=== PATIENT | female | born 1940 | race Two or more races ===

== ENCOUNTER 2020-05-16 07:34 | Outpatient (REF) | payer MEDICARE, SELFPAY ==
[2020-05-16 08:24] LABS: Imm Gran Abs Auto 0.03 X10*3/uL (0.00-0.03); Imm Gran Pct Auto 0.7 % (0.0-0.4); Monocytes Percent Auto 5.3 % (2-11); Red Cell Distribution Width 11.9 % (11.0-16.0); SCAN SMEAR FLAG 1
[2020-05-16 08:26] LABS: Basophils Percent Auto 0.7 % (0-2); Eosinophils Absolute Auto 0.1 X10*3/uL (0.0-0.4); Eosinophils Percent Auto 1.5 % (0-4); Hematocrit 31.7 % (37-47); Hemoglobin 9.7 g/dl (12.0-16.0); Lymphocytes Absolute Auto 1.6 X10*3/uL (1.2-4.9); Lymphocytes Percent Auto 34.4 % (20-40); Mean Corpuscular HGB Conc 30.6 g/dl (31.0-35.0); Mean Corpuscular Hemoglobin 29.4 pg (27.0-33.0); Mean Corpuscular Volume 96.1 fL (80-98); Monocytes Absolute Auto 0.2 X10*3/uL (0.1-1.2); Neutrophils Absolute Auto 2.6 X10*3/uL (2.0-8.3); Neutrophils Percent Auto 57.4 % (45-73); PLT CLUMP 1
[2020-05-16 08:27] LABS: MANUAL DIFF FLAG SCAN; PLT ABN DIST 1
[2020-05-16 08:55] LABS: Alanine Aminotransferase 22 U/L (0-31); Albumin Level 4.3 g/dL (3.5-5.0); Alkaline Phosphatase 53 U/L (39-117); Anion Gap 14 (12-20); Aspartate Amino Transferase 16 U/L (5-31); Bilirubin Total 0.8 mg/dL (0.0-1.0); Blood Urea Nitrogen 22 mg/dL (9-16); Calcium 9.1 mg/dL (8.4-10.2); Carbon Dioxide 27 mmol/L (22-29); Chloride 105 mmol/L (96-108); Cholesterol 185 mg/dL; Estimated Glomerular Filt Rate > 60; Glucose Fasting 109 mg/dL (60-99); HDL Cholesterol 34 mg/dL; LDL Cholesterol Calculated 99 mg/dl; Potassium 4.2 mmol/l (3.3-5.1); Sodium 142 mmol/L (135-145); Total Protein 6.7 g/dL (6.5-8.0); Triglycerides 263 mg/dL
[2020-05-16 08:57] LABS: White Blood Count 4.6 X10*3/uL (4.8-10.8)
[2020-05-16 08:58] LABS: Platelet Count 133 X10*3/uL (160-400)
[2020-05-16 08:59] LABS: SLIDE REVIEW VERIFIED
[2020-05-16 09:17] LABS: Vitamin D 25-OH Total 38.8 ng/mL (>30)
[2020-05-16 10:08] LABS: Folate 14.2 ng/mL (> or = 4.0); Vitamin B12 806 pg/mL (200-900)
== END 2020-05-16 07:35 | disposition home or self-care (01) ==
LOC: HO.LAB 07:34
PROVIDERS: Visit Provider Internal Medicine
DX: I10 Essential (primary) hypertension (principal); D51.0 Vitamin B12 deficiency anemia due to intrinsic factor deficiency; E55.9 Vitamin D deficiency, unspecified
CPT/HCPCS: 36415; 80053; 80061; 82306; 82607; 82746; 85025

== ENCOUNTER → 2020-05-18 15:15 | Outpatient (BNVA) | payer MEDICARE, SELFPAY | PROVIDERS: PCP Internal Medicine; Visit Provider Surgery | DX: Z85.3 Personal history of malignant neoplasm of breast (principal) | CPT/HCPCS: 99202 ==

== ENCOUNTER → 2020-05-24 14:12 | Outpatient (BNV) | payer MEDICARE, SELFPAY | PROVIDERS: PCP Internal Medicine; Visit Provider Internal Medicine | DX: D64.9 Anemia, unspecified (principal); Z85.3 Personal history of malignant neoplasm of breast | CPT/HCPCS: 99212; 99213; 99214; 99442; G2211 ==

== ENCOUNTER 2020-06-10 15:51 | Outpatient (REF) | payer MEDICARE, SELFPAY ==
--- NOTE | 2020-06-10 15:54 | MM_ITS ---
EXAMINATION: MM SCREENING DIGITAL BREAST TOMOSYNTHESIS, BILATERAL CLINICAL INFORMATION: Screening. Asymptomatic. History left lumpectomy for breast cancer 08/09/2015. Prior aspirations for seroma. Due for annual exam. COMPARISON: Mammography: 03/16/2019, 03/13/2018, 03/07/2017 TECHNIQUE: Digital breast tomosynthesis is performed in both the craniocaudal and mediolateral oblique views along with computer-aided detection (CAD). Synthesized 2D images are generated from the tomosynthesis. Additional left MLO view and additional bilateral exaggerated CC views are provided. FINDINGS: There are scattered areas of fibroglandular density (ACR BI-RADS breast composition Category b). Parenchymal pattern is similar to prior studies. Post therapy changes left breast are again noted with reduced breast size and old scarring and surgical clips. Neither breast shows interval mass or architectural abnormality or abnormal calcifications. No significant changes. MM/MM tomosynthesis screening BI IMPRESSION: No mammographic evidence of malignancy. Post therapy changes left breast. ASSESSMENT: BI-RADS 2: Benign RECOMMENDATION: Routine annual mammography screening. This patient's information was entered into a reminder system with a target due date for their next mammogram.
== END 2020-06-10 15:52 | disposition home or self-care (01) ==
LOC: HO.MAMMO 15:51
PROVIDERS: Visit Provider Internal Medicine
DX: Z12.31 Encounter for screening mammogram for malignant neoplasm of breast (principal)
CPT/HCPCS: 77063; 77067

== ENCOUNTER 2020-06-22 | Outpatient (REF) | payer MEDICARE, MEDICAID, SELFPAY | END 2020-06-22 00:01 | disposition home or self-care (01) | LOC: HO.VC | PROVIDERS: Visit Provider Internal Medicine | DX: Z23 Encounter for immunization (principal) | CPT/HCPCS: 0011A ==

== ENCOUNTER 2020-07-12 14:22 | Outpatient (REF) | payer MEDICARE, SELFPAY ==
[2020-07-12 15:09] LABS: Eosinophils Absolute Auto 0.1 X10*3/uL (0.0-0.4); MANUAL DIFF FLAG SCAN; Retic HGB Equivalent 34.2 pg (30.0-35.0); SCAN SMEAR FLAG 1
[2020-07-12 15:12] LABS: Basophils Percent Auto 0.3 % (0-2); Eosinophils Percent Auto 1.6 % (0-4); Hematocrit 32.3 % (37-47); Imm Gran Abs Auto 0.02 X10*3/uL (0.00-0.03); Imm Gran Pct Auto 0.3 % (0.0-0.4); Immature Retic Fraction 8.8 % (3.0-15.9); Lymphocytes Percent Auto 32.9 % (20-40); Mean Corpuscular Hemoglobin 29.7 pg (27.0-33.0); Mean Corpuscular Volume 95.8 fL (80-98); Monocytes Absolute Auto 0.4 X10*3/uL (0.1-1.2); Monocytes Percent Auto 7.2 % (2-11); Neutrophils Absolute Auto 3.5 X10*3/uL (2.0-8.3); Neutrophils Percent Auto 57.7 % (45-73); PLT CLUMP 1; Red Blood Count 3.37 X10*6/uL (4.20-5.50); Red Cell Distribution Width 11.9 % (11.0-16.0); Reticulocyte Percent 2.1 % (0.5-1.8)
[2020-07-12 15:18] LABS: PLT ABN DIST 1
[2020-07-12 15:19] LABS: White Blood Count 6.1 X10*3/uL (4.8-10.8)
[2020-07-12 15:26] LABS: Iron 68 mcg/dL (30-160); Percent Iron Saturation 22 % (15-50); Total Iron Binding Capacity 313 mcg/dL (228-428); Unsaturated Iron Binding 245 ug/dL
[2020-07-12 15:48] LABS: Platelet Count 144 X10*3/uL (160-400); SLIDE REVIEW VERIFIED
== END 2020-07-12 14:23 | disposition home or self-care (01) ==
LOC: HO.LAB 14:22
PROVIDERS: PCP Internal Medicine; Visit Provider Internal Medicine
DX: D64.9 Anemia, unspecified (principal)
CPT/HCPCS: 36415; 83540; 85025; 85045

== ENCOUNTER 2020-07-20 | Outpatient (REF) | payer MEDICARE, MEDICAID, SELFPAY | END 2020-07-20 00:01 | disposition home or self-care (01) | LOC: HO.VC | PROVIDERS: Visit Provider Internal Medicine | DX: Z23 Encounter for immunization (principal) | CPT/HCPCS: 0012A ==

== ENCOUNTER → 2020-11-15 14:41 | Outpatient (BNVA) | payer MEDICARE, SELFPAY | PROVIDERS: PCP Internal Medicine; Referring Provider Internal Medicine; Visit Provider Surgery | DX: Z95.3 Presence of xenogenic heart valve (principal) | CPT/HCPCS: 99212 ==

== ENCOUNTER → 2021-01-17 11:09 | Outpatient (BNVA) | payer MEDICARE, SELFPAY | PROVIDERS: PCP Internal Medicine; Visit Provider Student in an Organized Health Care Education/Training Program | CPT/HCPCS: Q3014 ==

== ENCOUNTER → 2021-06-13 14:50 | Outpatient (BNVA) | payer MEDICARE, SELFPAY | PROVIDERS: PCP Internal Medicine; Referring Provider Internal Medicine; Visit Provider Surgery | DX: Z85.3 Personal history of malignant neoplasm of breast (principal) | CPT/HCPCS: 99212 ==

== ENCOUNTER 2021-06-20 13:47 | Outpatient (REF) | payer MEDICARE, SELFPAY ==
--- NOTE | ~2021-06-20 | MM_ITS ---
EXAMINATION: MM SCREENING DIGITAL BREAST TOMOSYNTHESIS, BILATERAL CLINICAL INFORMATION: Left lumpectomy for breast cancer, 08/09/2015. Prior aspirations for seroma. Due for yearly. COMPARISON: Mammography: 06/10/2020, 03/16/2019, 03/13/2018, 03/07/2017 TECHNIQUE: Digital breast tomosynthesis is performed in both the craniocaudal and mediolateral oblique views along with computer-aided detection (CAD). Synthesized 2D images are generated from the tomosynthesis. FINDINGS: There are scattered areas of fibroglandular density (ACR BI-RADS breast composition Category b). There are no significant changes from prior study. Post therapy changes are present on the left with mild reduced breast size and old scarring posterior upper outer quadrant. There are surgical clips in the lumpectomy site. Bilateral vascular calcifications and some ductal secretory calcifications are again present. The right breast is unremarkable. There is no interval mass or architectural abnormality or developing density. MM/MM tomosynthesis screening BI IMPRESSION: No mammographic evidence of malignancy. Post therapy changes left breast. ASSESSMENT: BI-RADS 2: Benign RECOMMENDATION: Routine annual mammography screening. This patient's information was entered into a reminder system with a target due date for their next mammogram.
== END 2021-06-20 13:48 | disposition home or self-care (01) ==
LOC: HO.MAMMO 13:47
PROVIDERS: PCP Internal Medicine; Visit Provider Internal Medicine
DX: Z12.31 Encounter for screening mammogram for malignant neoplasm of breast (principal)
CPT/HCPCS: 77063; 77067

== ENCOUNTER → 2022-01-11 14:29 | Outpatient (BNVA) | payer MEDICARE, SELFPAY | PROVIDERS: PCP Internal Medicine; Referring Provider Internal Medicine; Visit Provider Surgery | DX: Z85.3 Personal history of malignant neoplasm of breast (principal); Z17.1 Estrogen receptor negative status [ER-]; I10 Essential (primary) hypertension; E53.8 Deficiency of other specified B group vitamins; E55.9 Vitamin D deficiency, unspecified; Z91.09 Other allergy status, other than to drugs and biological substances; Z92.21 Personal history of antineoplastic chemotherapy; Z92.3 Personal history of irradiation; Z79.899 Other long term (current) drug therapy | CPT/HCPCS: 99212 ==

== ENCOUNTER 2022-05-03 08:00 | Outpatient (REF) | payer OTHER, SELFPAY ==
[2022-05-03 09:01] LABS: Cholesterol 234 mg/dL; HDL Cholesterol 34 mg/dL; LDL Cholesterol Calculated 141 mg/dl; Triglycerides 299 mg/dL
[2022-05-03 09:36] LABS: Folate 16.9 ng/mL (> or = 4.0); Vitamin B12 894 pg/mL (200-900)
== END 2022-05-03 08:01 | disposition home or self-care (01) ==
LOC: HO.LAB 08:00
PROVIDERS: PCP Internal Medicine; Visit Provider Nurse Practitioner Family
DX: E53.8 Deficiency of other specified B group vitamins (principal); I10 Essential (primary) hypertension
CPT/HCPCS: 36415; 80061; 82607; 82746

== ENCOUNTER 2022-07-10 13:55 | Outpatient (REF) | payer OTHER, SELFPAY ==
--- NOTE | ~2022-07-10 | MM_ITS ---
EXAMINATION: MM SCREENING DIGITAL BREAST TOMOSYNTHESIS, BILATERAL CLINICAL INFORMATION: Screening. Asymptomatic. Status post left lumpectomy. COMPARISON: Mammography: June 20, 2021 and studies dating back to August 09, 2015 TECHNIQUE: Digital breast tomosynthesis is performed in both the craniocaudal and mediolateral oblique views along with computer-aided detection (CAD). Synthesized 2D images are generated from the tomosynthesis. FINDINGS: There are scattered areas of fibroglandular density (ACR BI-RADS breast composition Category b). There are no new significant masses, abnormal calcifications, or other abnormalities. Postsurgical change left breast again seen. MM/MM tomosynthesis screening BI IMPRESSION: No significant changes ASSESSMENT: BI-RADS 2: Benign RECOMMENDATION: Routine annual mammography screening. This patient's information was entered into a reminder system with a target due date for their next mammogram.
== END 2022-07-10 13:56 | disposition home or self-care (01) ==
LOC: HO.MAMMO 13:55
PROVIDERS: PCP Internal Medicine; Visit Provider Internal Medicine
DX: Z12.31 Encounter for screening mammogram for malignant neoplasm of breast (principal)
CPT/HCPCS: 77063; 77067

== ENCOUNTER 2022-11-13 09:09 | Outpatient (REF) | payer OTHER, SELFPAY ==
--- NOTE | ~2022-11-13 | XR_ITS ---
EXAMINATION: XR HIP, LEFT CLINICAL INFORMATION: Left hip pain COMPARISON: None available. TECHNIQUE: Two views of the left hip. FINDINGS: No fracture or dislocation. Mild left hip joint narrowing. Pubis symphysis sclerosis. SI joint within normal limits. XR/XR hip LT w PEL1V IMPRESSION: Mild degenerative change. No acute bony pathology.
== END 2022-11-13 09:10 | disposition home or self-care (01) ==
LOC: HO.HMGCX 09:09
PROVIDERS: PCP Internal Medicine; Visit Provider Internal Medicine
DX: M25.552 Pain in left hip (principal)
CPT/HCPCS: 73502

== ENCOUNTER 2022-11-28 07:42 | Outpatient (AMB) | payer OTHER, SELFPAY ==
--- NOTE | 2022-11-28 07:53 | MHC.PC.OV ---
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: No Accompanied by: daughter in law Allergies ENVIRONMENTAL Allergy (Mild, Uncoded 11/28/22 08:03) SWOLLEN EYES FROM POLLEN Medication List - Last Reconciled 11/28/22 by Christy Powell MD atorvastatin 20 mg PO BEDTIME 90 days calcium citrate 200 mg PO DAILY 30 days cholecalciferol (vitamin D3) 25 mcg PO DAILY 90 days cyanocobalamin (vitamin B-12) 1,000 mcg sublingual DAILY 90 days ferrous sulfate (iron) 325 mg PO DAILY 90 days lisinopril-hydrochlorothiazide 10-12.5 mg 1 tab PO DAILY 90 days sertraline 25 mg PO DAILY Tobacco use date assessed: 07/19/22 Fall risk assessment: No Falls in past year Last assessed Fall Risk: 11/28/22 Dental Screening Dental Screen Date: 11/28/22 Did you have a dental visit in the last 12 months?: Yes Did you have a dental problem in the last 6 months where you did not have access to dental care?: No Was dental information given to patient?: Patient has dentist HPI HPI Comments History of Present Illness Details This is an 82-year-old female with hypertension, pure hypercholesterolemia and mild major depression that complains of left hip pain secondary to osteoarthritis not relieved by NSAIDs. I will order MAPAP as needed for this matter and will refer her to Ortho. Walks with a cane for gait stability. Accompanied by daughter in-law. Blood pressure stable. Lipid panel will be order and was advised to follow a low-cholesterol diet and be compliant with statins. Depression stable with SSRIs. Has left hearing loss and will be referred to ear exam. COUNT INCLUDES THE [facility] Medical History (Updated 11/28/22 @ 08:16 by Christy Powell MD) B12 deficiency Depression Essential hypertension History of left breast cancer Hypovitaminosis D Surgical History History of cholecystectomy History of eye surgery History of hysterectomy History of lumpectomy of left breast Family History Father No problems noted. Mother No problems noted. Brother Lung cancer Social History Household Members: None Housing: Apartment Alcohol intake: never Patient Tobacco Use Status: Never used Tobacco e-Cigarette/Vaping Use: Never Used Second Hand Smoke Exposure: No service: No Current occupational status: unemployed Cognitive needs: Yes (cane, walker ) Hearing needs: No Vision needs: Yes Questionnaire Thrive Questionnaire Date Thrive assessed: 07/19/22 OLIVER-7 AMB Questionnaire OLIVER-7 Date OLIVER - 7 assessed: 07/19/22 Source: Developed by Drs. Sarbjit Hilario, Alisa Collins, Ramana Monterroso and colleagues, with an educational marcelo from [employer]. Review of Systems Const All systems reviewed & are unremarkable except as noted in HPI and below Eyes Reports no additional complaints, Denies change in vision and Denies other visual disturbances Card Denies chest pain at rest, Denies chest pain with activity, Denies edema, Denies irregular heart rhythm, Denies claudication, Denies dyspnea, Denies dyspnea on exertion, Denies orthopnea, Denies paroxysmal nocturnal dyspnea and Denies slow heart rate Resp Denies cough, Denies dyspnea and Denies dyspnea on exertion GI Denies abdominal pain, Denies change in bowel habits, Denies excessive flatus, Denies nausea and Denies vomiting Denies urinary incontinence, Denies urinary hesitancy and Denies urinary urgency Musc Denies abnormal gait, Denies atrophy, Denies deformity, Reports arthralgias and Denies limited range of motion Skin/Breast Denies bleeding lesions, Denies changing lesions and Denies rash Neuro Denies abnormal gait and Denies lack of coordination Physical exam (Primary Care) Vital Signs: Last Vital Signs BP 130/58 L 11/28/22 07:54 BMI result Body Mass Index 33.8 Tobacco/Smoking Status: Tobacco use Status Tobacco use date assessed 07/19/22 11/28/22 08:00 Patient Tobacco Use Status Never used Tobacco 11/28/22 08:00 e-Cigarette/Vaping Use Never Used 11/28/22 08:00 Thrive Assessment: Date of Thrive Assessment Date Thrive assessed 07/19/22 11/28/22 08:00 Const Limitations: ambulation with cane Eyes General: appearance normal, both eyes and all related structures Eyelids: Yes eyelids normal Conjunctivae: conjunctivae normal Neck Neck: Yes normal visual inspection and Yes supple Resp Effort & Inspection: normal respiratory effort Auscultation: clear to auscultation bilaterally Cardio Jugular venous distension: no JVD Rate: regular rate Rhythm: regular rhythm Heart sounds: S1 normal heart sound present and S2 normal heart sound present Extrem General: Yes full ROM Assessment and Plan Assessment & Plan (1) Mild major depression: Code(s): F32.0 - Major depressive disorder, single episode, mild Plan: Continue sertraline. (2) Osteoarthritis of left hip: Code(s): M16.12 - Unilateral primary osteoarthritis, left hip Plan: Start MAPAP prn. Referred to Ortho. (3) Essential hypertension: Code(s): I10 - Essential (primary) hypertension Plan: Continue lisinopril-hydrochlorothiazide. Blood pressure goal is equal or less than 130/80. (4) Pure hypercholesterolemia: Code(s): E78.00 - Pure hypercholesterolemia, unspecified Plan: Continue statins. Start low-cholesterol diet. Repeat lipid panel. Orders: Orders Vitamin B12 and Folate Today E53.8 - Deficiency of other specified B group vitamins Comprehensive [place]. Panel Fast Today I10 - Essential (primary) hypertension IRON PROFILE Today D64.9 - Anemia, unspecified Lipid Panel Today E78.5 - Hyperlipidemia, unspecified Vitamin D 25-OH Total Today E55.9 - Vitamin D deficiency, unspecified Complete Blood Count Auto Diff Today D64.9 - Anemia, unspecified XR DEXA axial skeleton Today N95.9 - Unspecified menopausal and perimenopausal disorder Referrals Speech and Hearing Referral H91.90 - Unspecified hearing loss, unspecified ear Orthopedics Referral M16.12 - Unilateral primary osteoarthritis, left hip Medications: New acetaminophen ER (Mapap Arthritis Pain) 1,300 mg (2 x 650 mg) PO Q8H 30 days PRN 180 tabs 2RF pain M16.12 - Unilateral primary osteoarthritis, left hip Coding Level of Care Code Est Pt Level 4 (89081) Diagnoses Mild major depression F32.0 Osteoarthritis of left hip M16.12 Essential hypertension I10 Pure hypercholesterolemia E78.00 Time Spent (min) 24
[2022-11-28 07:54] VITALS: BP 130/58; BMI 33.8
== END 2022-11-28 08:14 | disposition home or self-care (01) ==
PROVIDERS: Visit Provider Internal Medicine
DX: F32.0 Major depressive disorder, single episode, mild (principal); M16.12 Unilateral primary osteoarthritis, left hip; I10 Essential (primary) hypertension; E78.00 Pure hypercholesterolemia, unspecified
CPT/HCPCS: 99214

== ENCOUNTER 2022-12-20 07:40 | Outpatient (REF) | payer OTHER, SELFPAY ==
--- NOTE | ~2022-12-20 | MM_ITS ---
EXAMINATION: BONE DENSITOMETRY CLINICAL INDICATION: Menopause. COMPARISON: Baseline BD dated 05/11/2016. TECHNIQUE: Using a [employer] DXA System (software version: 13.1) manufactured by [employer], dual-energy x-ray absorptiometry was performed of the lumbar spine and left hip. The images are of good technical quality. Summary results are attached. FINDINGS: LEFT FEMUR, NECK: Current: BMD 0.655 g/cm2, Z-score -0.4, T-score -2.8, osteoporosis. Baseline: BMD 0.613 g/cm2. LEFT FEMUR, TOTAL: Current: BMD 0.772 g/cm2, Z-score 0.4, T-score -1.9, osteopenia, 3.3% increase from baseline (<5% change is not significant). Baseline: BMD 0.747 g/cm2. AP SPINE L1-L3 (excluding L4): The data of L1-L4 has been changed to exclude the L4 vertebral body, because degenerative sclerosis at this level may cause overestimation of lumbar spine density. Current: BMD 0.922 g/cm2, Z-score -0.1, T-score -2.1, osteopenia, 29.3% increase from baseline (<5% change is not significant). Baseline: BMD 0.713 g/cm2. IDENTIFIED RISK FACTORS: Early menopause, hysterectomy, secondary osteoporosis. HISTORY OF FRACTURE: None listed. MEDICATIONS: Calcium, vitamin D. MM/XR DEXA axial skeleton IMPRESSION: 1. DIAGNOSIS: Osteoporosis based on the lowest T-score value of -2.8 in the femoral neck applying World Health Organization criteria. 2. 10-YEAR FRACTURE RISK PREDICTION, FRAX: According to the guidelines, FRAX calculation should only be performed on patients in the osteopenia bone density category. Therefore, FRAX was not performed on this patient. 3. Treatment Recommendations: NOF guidelines recommend consideration for treatment in postmenopausal women and men age 50 and older presenting with the following: -A hip or vertebral (clinical or morphometric) fracture. -T-score less than or equal to -2.5 at the femoral neck or spine after appropriate evaluation to exclude secondary causes. -Low bone mass at the hip or spine and a 10-year fracture probability by FRAX of greater than or equal to 3% for hip fracture or greater than or equal to 20% for major osteoporotic fracture based on the [place] adapted WHO algorithm. 4. Other Recommendations: All treatment decisions require clinical judgment and consideration of individual patient factors, including patient preferences, comorbidities, previous drug use, risk factors not captured in the FRAX model (e.g. frailty, falls, vitamin D deficiency, increased bone turnover, interval significant decline in bone density) and possible under or overestimation of fracture risk by FRAX. Additional medical evaluation for secondary cause of low bone mineral density may be appropriate. FUTURE SCAN RECOMMENDATION: People with diagnosed cases of osteoporosis or at high risk for fracture should have regular bone mineral density tests. For patients eligible for Medicare, routine testing is allowed once every 2 years. The testing frequency can be increased to one year for patients who have rapidly progressing disease, those who are receiving or discontinuing medical therapy to restore bone mass, or have additional risk factors.
== END 2022-12-20 07:41 | disposition home or self-care (01) ==
LOC: HO.MAMMO 07:40
PROVIDERS: PCP Internal Medicine; Visit Provider Internal Medicine
DX: Z13.820 Encounter for screening for osteoporosis (principal); Z78.0 Asymptomatic menopausal state
CPT/HCPCS: 77080

== ENCOUNTER → 2022-12-20 08:15 | Outpatient (BNV) | payer OTHER, SELFPAY | PROVIDERS: PCP Internal Medicine; Visit Provider Radiology Diagnostic Radiology | DX: M81.0 Age-related osteoporosis without current pathological fracture (principal); N95.9 Unspecified menopausal and perimenopausal disorder | CPT/HCPCS: 77080 ==

== ENCOUNTER 2022-12-20 08:27 | Outpatient (REF) | payer OTHER, SELFPAY ==
[2022-12-20 08:48] LABS: MANUAL DIFF FLAG NO
[2022-12-20 09:01] LABS: Basophils Percent Auto 0.5 % (0-2); Eosinophils Absolute Auto 0.1 X10*3/uL (0.0-0.4); Eosinophils Percent Auto 2.2 % (0-4); Hematocrit 32.6 % (37.0-47.0); Hemoglobin 10.2 g/dl (12.0-16.0); Imm Gran Abs Auto 0.04 X10*3/uL (0.00-0.03); Imm Gran Pct Auto 0.7 % (0.0-0.4); Lymphocytes Absolute Auto 1.7 X10*3/uL (1.2-4.9); Lymphocytes Percent Auto 29.6 % (20-40); Mean Corpuscular HGB Conc 31.3 g/dl (31.0-35.0); Mean Corpuscular Hemoglobin 30.6 pg (27.0-33.0); Mean Corpuscular Volume 97.9 fL (80.0-98.0); Mean Platelet Volume 12.2 fL (9.4-12.3); Monocytes Absolute Auto 0.4 X10*3/uL (0.1-1.2); Monocytes Percent Auto 6.3 % (2-11); Neutrophils Absolute Auto 3.4 x10*3/uL (2.0-8.3); Neutrophils Percent Auto 60.7 % (45-73); Platelet Count 155 X10*3/uL (160-400); Red Blood Count 3.33 X10*6/uL (4.20-5.50); White Blood Count 5.6 X10*3/uL (4.8-10.8)
[2022-12-20 09:36] LABS: Alanine Aminotransferase 42 U/L (0-31); Albumin Level 4.4 g/dL (3.5-5.0); Alkaline Phosphatase 72 U/L (39-117); Anion Gap 16 (12-20); Aspartate Amino Transferase 21 U/L (5-31); Bilirubin Total 0.5 mg/dL (0.0-1.0); Blood Urea Nitrogen 23 mg/dL (9-16); Calcium 9.8 mg/dL (8.4-10.2); Carbon Dioxide 25 mmol/L (22-29); Chloride 106 mmol/L (96-108); Cholesterol 200 mg/dL; Estimated Glomerular Filt Rate > 60; Glucose Fasting 105 mg/dL (60-99); HDL Cholesterol 37 mg/dL; Iron 90 mcg/dL (30-160); LDL Cholesterol Calculated 102 mg/dl; Percent Iron Saturation 34 % (15-50); Potassium 4.1 mmol/L (3.3-5.1); Sodium 143 mmol/L (135-145); Total Iron Binding Capacity 267 mcg/dL (228-428); Total Protein 7.1 g/dL (6.5-8.0); Triglycerides 308 mg/dL; Unsaturated Iron Binding 177 ug/dL
[2022-12-20 09:57] LABS: Vitamin D 25-OH Total 43.7 ng/mL (>30)
[2022-12-20 10:03] LABS: Vitamin B12 743 pg/mL (200-900)
== END 2022-12-20 08:28 | disposition home or self-care (01) ==
LOC: HO.LAB 08:27
PROVIDERS: PCP Internal Medicine; Visit Provider Internal Medicine
DX: E53.8 Deficiency of other specified B group vitamins (principal); D64.9 Anemia, unspecified; E55.9 Vitamin D deficiency, unspecified; E78.5 Hyperlipidemia, unspecified; I10 Essential (primary) hypertension
CPT/HCPCS: 36415; 80053; 80061; 82306; 82607; 82746; 83540; 85025

== ENCOUNTER 2022-12-28 07:44 | Outpatient (AMB) | payer OTHER, SELFPAY ==
[2022-12-28 07:58] VITALS: BMI 33.8
--- NOTE | 2022-12-28 07:58 | MHC.OFFVIS ---
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 States she was having lateral hip and groin pain for the last month. States her pain was so bad she had to use a cane for support. No injury she can recall. State she was seen at walk in center as well. Currently states her pain has resolved. She no longer has pain, state she was given muscle relaxer which helped. Denies numbness or tingling. Patient states she fell about 2 weeks ago and scrapped her knee. States she has no pain. 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 She states she was having lateral hip and groin pain which was aggravated with prolonged walking and performing daily activities. Her pain is currently resolved and she denies having any pain, numbness or tingling. She was seen at a walk-in clinic where she was prescribed a muscle relaxant which provided her relief. She has not had any injury in the past. [facility] Medical History B12 deficiency Depression Essential hypertension History of left breast cancer Hypovitaminosis D Surgical History History of cholecystectomy History of eye surgery History of hysterectomy History of lumpectomy of left breast Family History Father No problems noted. Mother No problems noted. Brother Lung cancer Social History Household Members: None Housing: Apartment Alcohol intake: never Patient Tobacco Use Status: Never used Tobacco e-Cigarette/Vaping Use: Never Used Second Hand Smoke Exposure: No service: No Current occupational status: unemployed Cognitive needs: Yes (cane, walker ) Hearing needs: No Vision needs: Yes Review of Systems Const All systems reviewed & are unremarkable except as noted in HPI and below Physical Exam Vital Signs: BMI result Body Mass Index 33.8 Const General: cooperative, healthy appearing, comfortable, no acute distress, well developed and alert Orientation/consciousness: patient oriented x3 HEENT Head: Yes normal to inspection, Yes normocephalic and Yes atraumatic Eyes General: appearance normal, both eyes and all related structures Resp Effort & Inspection: normal respiratory effort and able to speak in complete sentences Cardio Rate: regular rate Peripheral pulses: Peripheral pulses 2+ throughout GI Palpation (GI): Soft to palpation Skin Lesions: no lesions Rashes: no rashes Neuro General: patient oriented x3 Extrem Other: Left hip: Normal to inspection, ambulates with a slight limp. Has no discomfort with internal and extension rotation of hip. No significant stiffness. Mild discomfort with hip flexion against resistance. Negative SLR. NVI. Results Reviewed Results Reviewed: xrays of the left hip obtained on 11/13/22 Mild degenerative change. No acute bony pathology. Assessment & Plan Assessment & Plan (1) Osteoarthritis of left hip: Code(s): M16.12 - Unilateral primary osteoarthritis, left hip Plan She is doing well since her visit with the walk-in clinic. If symptoms return and she is significantly limited with daily activities, I did explain that she may benefit from surgical intervention, likely [place]. She does understand all this and if symptoms persist or worsens, patient will contact the office, otherwise follow-up as needed. Patient Instructions: Scribed for Tesha Jamison PA-C, by Boo Tomlinson medical technologist microbiology, on 12/28/2022 at 8:00 AM EST. ITesha PA-C, have personally reviewed and agree with the information entered by the scribe. Coding Level of Care Code New Pt Level 3 (71496) Diagnoses Osteoarthritis of left hip M16.12
== END 2022-12-28 08:19 | disposition home or self-care (01) ==
PROVIDERS: PCP Internal Medicine; Visit Provider Physician Assistant
DX: M16.12 Unilateral primary osteoarthritis, left hip (principal)
CPT/HCPCS: 99203

== ENCOUNTER → 2022-12-28 07:44 | Outpatient (BNVA) | payer OTHER, SELFPAY | PROVIDERS: PCP Internal Medicine; Visit Provider Physician Assistant | DX: M16.12 Unilateral primary osteoarthritis, left hip (principal) | CPT/HCPCS: 99202 ==

== ENCOUNTER 2023-01-07 09:21 | Outpatient (AMB) | payer OTHER, SELFPAY ==
[2023-01-07 09:26] VITALS: BP 122/64; PULSE 85; O2SAT 97; BMI 34.4
--- NOTE | 2023-01-07 09:26 | MHC.PC.OV ---
Vital Signs 01/07/23 09:26 Height 4 ft 5 in Weight 137 lb 6 oz BMI 34.4 BP 122/64 Blood Pressure Location Lt brachial Position Sitting Pulse 85 Pulse Source Pulse Oximeter Pulse Oximetry (%) 97 Oxygen Delivery Method Room Air Intake Visit Reasons: Physical exam Allergies ENVIRONMENTAL Allergy (Mild, Uncoded 01/07/23 09:51) SWOLLEN EYES FROM POLLEN Medication List - Last Reconciled 01/07/23 by JOURDAN Moser acetaminophen ER (Mapap Arthritis Pain) 1,300 mg (2 x 650 mg) PO Q8H PRN 30 days atorvastatin 20 mg PO BEDTIME 90 days calcium citrate 200 mg PO DAILY 30 days cholecalciferol (vitamin D3) 25 mcg PO DAILY 90 days cyanocobalamin (vitamin B-12) 1,000 mcg sublingual DAILY 90 days ferrous sulfate (iron) 325 mg PO DAILY 90 days lisinopril-hydrochlorothiazide 10-12.5 mg 1 tab PO DAILY 90 days sertraline 25 mg PO DAILY Tobacco use date assessed: 01/07/23 Dental Screening Dental Screen Date: 01/07/23 Did you have a dental visit in the last 12 months?: Yes Did you have a dental problem in the last 6 months where you did not have access to dental care?: No Was dental information given to patient?: Patient has dentist HPI HPI Comments History of Present Illness Details 82-year-old female past history significant for depression,osteoporosis, hypercholesteremia, hypertension, iron deficiency anemia and osteoarthritis left hip. Patient Dr. Beach, presents today for physical exam accompanied by her son. Denies chest pain, palpitations, shortness of breath syncope. Labs from 12/20 reviewed with patient Eye exam: 3 moths Colonscopy: negative, screeing past. Mammorgram: 07/12/22, Benign, Due Jun 2023 BMD: 12/20/22; osteoporosis f/u 2 years [facility] Medical History B12 deficiency Depression Essential hypertension History of left breast cancer Hypovitaminosis D Surgical History History of cholecystectomy History of eye surgery History of hysterectomy History of lumpectomy of left breast Family History Father No problems noted. Mother No problems noted. Brother Lung cancer Social History Household Members: None Housing: Apartment Alcohol intake: never Patient Tobacco Use Status: Never used Tobacco e-Cigarette/Vaping Use: Never Used Second Hand Smoke Exposure: No service: No Current occupational status: unemployed Cognitive needs: Yes (cane, walker ) Hearing needs: No Vision needs: Yes Questionnaire PHQ-9 Over the last 2 weeks, how often have you been bothered by any of the following problems? 1. Little interest or pleasure in doing things: not at all 2. Feeling down, depressed, or hopeless: not at all 3. Trouble falling or staying asleep, or sleeping too much: not at all 4. Feeling tired or having little energy: not at all 5. Poor appetite or overeating: not at all 6. Feeling bad about yourself - or that you are a failure or have let yourself or your family down: not at all 7. Trouble concentrating on things, such as reading the newspaper or watching television: not at all 8. Moving or speaking so slowly that other people could have noticed. Or the opposite - being so fidgety or restless that you have been moving around a lot more than usual: not at all 9. Thoughts that you would be better off or of hurting yourself in some way: not at all Total score: 0 Depression Screening Interpretation: Negative 62537 - PHQ-9 Billing: Yes Source: Developed by Drs. Sarbjit Hilario, Alisa Collins, Ramana Monterroso and colleagues, with an educational marcelo from [employer] Thrive Questionnaire Date Thrive assessed: 07/19/22 I am a: Patient What is your living situation today?: I have a steady place to live Within the past 12 months, did the food you bought not last and you didn't have the money to get more?: Never true Within the past 12 months, did you worry whether your food would run out before you got money to buy more?: Never true Currently or been in a relationship where the following occur: no concerns reported AUDIT C Alcohol Use Questionnaire (AUDIT-C) 1. How often do you have a drink containing alcohol?: Never 3. How often do you have six or more drinks on one occasion?: Never Total Score: 0 OLIVER-7 AMB Questionnaire OLIVER-7 Date OLIVER - 7 assessed: 07/19/22 Feeling nervous, anxious, or on edge: 1 = Several days Not being able to stop or control worryin = Not at all Worrying too much about different things: 0 = Not at all Trouble relaxin = Not at all Being so restless that it is hard to sit still: 0 = Not at all Becoming easily annoyed or irritable: 1 = Several days Feeling afraid as if something awful might happen: 0 = Not at all Total OLIVER-7 score (0-4 normal; 5-9 mild; 10-14 moderate; 15-21 severe): 2 Source: Developed by Drs. Sarbjit Hilario, Alisa Collins, Ramana Monterroso and colleagues, with an educational marcelo from [employer] OLIVER-7 Assessment Billing OLIVER-7 Assessment Tool: OLIVER-7 Assessment 26596 Review of Systems Const Denies chills, Denies fatigue, Denies fever(s) and Denies poor appetite Eyes Denies no additional complaints ENT Reports Normal hearing present Card Denies chest pain, Denies syncope, Denies rapid heart rate and Denies dyspnea Resp Denies cough and Denies dyspnea GI Denies change in stool character, Denies constipation, Denies diarrhea, Denies nausea and Denies vomiting Denies urinary frequency, Denies dysuria and Denies urinary urgency Neuro Reports Normal hearing present, Denies confusion and Denies syncope Psych Denies confusion Endo Denies fatigue Physical exam (Primary Care) Vital Signs: Last Vital Signs Pulse 85 01/07/23 09:26 BP 122/64 01/07/23 09:26 Pulse Ox 97 01/07/23 09:26 Oxygen Delivery Method Room Air 01/07/23 09:26 BMI result Body Mass Index 34.4 Tobacco/Smoking Status: Tobacco use Status Tobacco use date assessed 01/07/23 01/07/23 09:30 Patient Tobacco Use Status Never used Tobacco 01/07/23 09:30 e-Cigarette/Vaping Use Never Used 01/07/23 09:30 PHQ-9: PHQ-9 Score PHQ-9: Total score 0 01/07/23 09:43 Depression Screening Interpretation: Negative Thrive Assessment: Date of Thrive Assessment Date Thrive assessed 07/19/22 01/07/23 09:30 Currently or been in a relationship where the following occur: no concerns reported Const General: cooperative and no acute distress; No confusion Orientation/consciousness: patient oriented x3 and No confusion HENMT Head: Yes normocephalic and Yes atraumatic Ears: external ears normal and TM's normal bilaterally General nose exam: Normal external nose present and Normal nasal mucous membranes and turbinates present Face and sinus: Yes normal facial exam and Yes sinuses nontender Mouth: moist mucous membranes Throat: Yes tonsils normal Eyes Conjunctivae: conjunctivae normal Sclerae: sclerae normal Pupils: Equal, round and reactive pupils present and Pupils normal by confrontation EOM: EOMs intact bilaterally Direct Ophthalmoscopy: normal light reflex Neck Neck: Yes no lymphadenopathy and Yes supple Thyroid: Thyroid normal Chest Chest palpation & inspection: normal inspection of the chest Resp Effort & Inspection: normal respiratory effort Auscultation: clear to auscultation bilaterally, no crackles, no rhonchi and no wheezes Cardio Rate: regular rate Rhythm: regular rhythm Heart sounds: S1 normal heart sound present and S2 normal heart sound present Peripheral pulses: dorsalis pedis present GI Inspection: Yes normal to inspection Palpation (GI): Soft to palpation, nontender and No hepatosplenomegaly present Auscultation: normoactive bowel sounds General: Yes no CVA tenderness Back/Spine/Pelvis Back: no CVA tenderness Skin General skin exam: no rashes or lesions noted Neuro General: patient oriented x3 and No confusion Cranial nerves: Yes CN's II-XII intact bilaterally, Yes Equal, round and reactive pupils present and Yes Normal hearing present Cognition (Neuro): normal cognition Gait exam (Neuro): Normal gait present Motor exam (neuro): 5/5 motor strength present throughout Deep tendon reflexes (DTR's): Right brachioradialis reflex intensity grade: 2+, Left brachioradialis reflex intensity grade: 2+, Right patellar reflex intensity grade: 2+ and Left patellar reflex intensity grade: 2+ Extrem General: No edema Assessment and Plan Assessment & Plan (1) Essential hypertension: Code(s): I10 - Essential (primary) hypertension Plan: Continue on lisinopril hydrochlorothiazide. Blood pressure goal less than 140/90. Follow low-salt diet and exercise. (2) Pure hypercholesterolemia: Code(s): E78.00 - Pure hypercholesterolemia, unspecified Plan: Continue on atorvastatin 20 mg at bedtime. Avoid fried foods, chicken skin, eggs, butter,margarine, pastries and? red meat. (3) Mild major depression: Code(s): F32.0 - Major depressive disorder, single episode, mild Plan: Patient stable sertraline 20 mg daily. (4) Osteoarthritis of left hip: Code(s): M16.12 - Unilateral primary osteoarthritis, left hip Plan: Was seen by orthopedic advised to follow up as needed if left hip pain returns to discuss surgical intervention. (5) Osteoporosis: Code(s): M81.0 - Age-related osteoporosis without current pathological fracture Plan: Patient has upcoming appointment scheduled with Rheumatology. (6) Physical exam, annual: Code(s): Z00.00 - Encounter for general adult medical examination without abnormal findings Plan: Follow-up in 1 year. Plan Follow up in 6 months. Coding Level of Care Code Est Pt Prev Care >65y(04342) Diagnoses Essential hypertension I10 Pure hypercholesterolemia E78.00 Mild major depression F32.0 Osteoarthritis of left hip M16.12 Osteoporosis M81.0 Physical exam, annual Z00.00 Additional Codes OLIVER-7 Assessment Billing - OLIVER-7 Assessment Tool: OLIVER-7 Assessment 90133 ([id number])
== END 2023-01-07 10:17 | disposition home or self-care (01) ==
PROVIDERS: PCP Internal Medicine; Visit Provider Nurse Practitioner Family
DX: Z00.00 Encounter for general adult medical examination without abnormal findings (principal); I10 Essential (primary) hypertension; F32.0 Major depressive disorder, single episode, mild; E78.00 Pure hypercholesterolemia, unspecified; M16.12 Unilateral primary osteoarthritis, left hip; M81.0 Age-related osteoporosis without current pathological fracture
CPT/HCPCS: 99397

== ENCOUNTER 2023-01-10 13:40 | Outpatient (AMB) | payer OTHER, SELFPAY ==
--- NOTE | 2023-01-10 13:56 | A.OFFVIS_ITS ---
Intake Vital Signs 01/10/23 14:02 Height 4 ft 5 in Weight 138 lb 6 oz BMI 34.6 BP 143/64 H Blood Pressure Location Lt brachial Position Sitting Pulse 70 Intake Visit Reasons: yearly breast exam Intake Note: Patient is seen in office for yearly breast exam. Patient c/o: denies any concerns at the time of visit Loom Cleaner Required: No Classifications Officer Cc/Cm: Classifications Officer Cc/Cm Present Accompanied by: Family/Other Allergies ENVIRONMENTAL Allergy (Mild, Uncoded 01/10/23 14:00) SWOLLEN EYES FROM POLLEN Medication List - Last Reconciled 01/10/23 by Ramin Hines MD acetaminophen ER (Mapap Arthritis Pain) 1,300 mg (2 x 650 mg) PO Q8H PRN 30 days atorvastatin 20 mg PO BEDTIME 90 days calcium citrate 200 mg PO DAILY 30 days cholecalciferol (vitamin D3) 25 mcg PO DAILY 90 days cyanocobalamin (vitamin B-12) 1,000 mcg sublingual DAILY 90 days ferrous sulfate (iron) 325 mg PO DAILY 90 days lisinopril-hydrochlorothiazide 10-12.5 mg 1 tab PO DAILY 90 days sertraline 25 mg PO DAILY HPI HPI Comments History of Present Illness Details 82-year-old female patient, former patient of Dr. Fernandez returning for follow-up breast examination. She was found to have a palpable mass in February 2015 in the left breast at the lower outer quadrant. 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 A PET scan revealed evidence of 3 positive axillary lymph nodes. Ultrasound-guided biopsy of the lymph nodes revealed metastatic disease to lymph nodes. She subsequently underwent neoadjuvant chemotherapy under direction of Dr. Parra. She received Taxotere, carboplatin, pertuzumab, and Herceptin. She had a complete clinical response and MRI revealed a complete response. She underwent a left breast lumpectomy with needle localization and left sentinel axillary node biopsy on 08/09/2015. She had a complete pathologic response as well. She subsequently underwent radiation therapy which was co mpleted on 11/28/2015. She underwent Herceptin for 1 year. The patient feels well and denies any new breast symptoms. Her last mammogram dated 07/10/2022 revealed no significant changes from the prior mammogram (BI- RADS 2). Follow-up mammogram is recommended in 1 year. PFSH Medical History B12 deficiency Depression Essential hypertension History of left breast cancer Hypovitaminosis D Surgical History History of cholecystectomy History of eye surgery History of hysterectomy History of lumpectomy of left breast Family History Father No problems noted. Mother No problems noted. Brother Lung cancer Social History Household Members: None Housing: Apartment Alcohol intake: never Patient Tobacco Use Status: Never used Tobacco e-Cigarette/Vaping Use: Never Used Second Hand Smoke Exposure: No service: No Current occupational status: unemployed Cognitive needs: Yes (cane, walker ) Hearing needs: No Vision needs: Yes Review of Systems Const All systems reviewed & are unremarkable except as noted in HPI and below Card Reports no additional complaints Resp Reports no additional complaints Denies nipple discharge Skin/Breast Denies breast swelling, Denies breast skin changes, Denies breast pain, Denies breast mass, Denies change in breast shape and Denies nipple discharge Kendall/Lymph Denies lymphadenopathy Physical Exam Vital Signs: Last Vital Signs Pulse 70 01/10/23 14:02 BP 143/64 H 01/10/23 14:02 BMI result Body Mass Index 34.6 Const General: no acute distress Nutritional Appearance: well nourished Orientation/consciousness: patient oriented x3 HEENT Head: Yes normocephalic and Yes atraumatic Chest Other: Well-healed incision in the left breast with some residual radiation change especially in the upper outer quadrant of the left breast. No discrete mass, skin change, nipple discharge for axillary lymphadenopathy is identified. Right breast: No skin change, nipple discharge, nipple retraction, palpable mass, or enlarged lymph node is appreciated. Resp Effort & Inspection: normal respiratory effort Skin General skin exam: no rashes or lesions noted Neuro General: patient oriented x3 Extrem General: Yes no clubbing, cyanosis or edema Assessment & Plan Assessment & Plan (1) History of left breast cancer: Code(s): Z85.3 - Personal history of malignant neoplasm of breast Plan: 82-year-old female with a prior history of a locally advanced breast cancer, status post neoadjuvant treatment followed by lumpectomy and sentinel node biopsy, followed by radiation therapy and Herceptin for 1 year. Patient continues to do well and denies any ongoing breast symptoms. Her most recent mammogram of 07/12/2022 reveals no evidence of malignancy (BI-RADS 2). Examination today reveals no suspicious findings in either breast and no evidence of recurrence disease. She should continue to follow-up with Dr. Parra. She will be due for follow-up yearly mammogram in June 2023. She should return to our office in 1 year. Coding Level of Care Code Est Pt Level 3 (42056) Diagnoses History of left breast cancer Z85.3
[2023-01-10 14:02] VITALS: BP 143/64; PULSE 70; BMI 34.6
== END 2023-01-10 14:15 | disposition home or self-care (01) ==
PROVIDERS: PCP Internal Medicine; Visit Provider Surgery
DX: Z85.3 Personal history of malignant neoplasm of breast (principal)
CPT/HCPCS: 99213

== ENCOUNTER → 2023-01-10 13:40 | Outpatient (BNVA) | payer OTHER, SELFPAY | PROVIDERS: PCP Internal Medicine; Visit Provider Surgery | DX: Z85.3 Personal history of malignant neoplasm of breast (principal) | CPT/HCPCS: 99212 ==

== ENCOUNTER 2023-03-19 08:18 | Outpatient (AMB) | payer OTHER, SELFPAY ==
[2023-03-19 08:32] VITALS: BP 126/62; PULSE 73; TEMP 36.3; O2SAT 96; BMI 29.5
--- NOTE | 2023-03-19 08:32 | A.OFFVIS_ITS ---
Intake Vital Signs 03/19/23 08:32 Height 4 ft 9.8 in Weight 139 lb 15.896 oz BMI 29.5 BP 126/62 Blood Pressure Location Rt brachial Position Sitting Pulse 73 Pulse Source Pulse Oximeter Temp 97.4 F Temp Source Skin Pulse Oximetry (%) 96 Intake Visit Reasons: Osteoporosis Intake Note: New pt presents today for Osteoporosis consult at the request of PCP Dr Beach. 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 Required: No Accompanied by: Daughter in law, Raquel Allergies ENVIRONMENTAL Allergy (Mild, Uncoded 03/19/23 08:38) SWOLLEN EYES FROM POLLEN Medication List - Last Reconciled 03/19/23 by Ofelia Montenegro MD acetaminophen ER (Mapap Arthritis Pain) 1,300 mg (2 x 650 mg) PO Q8H PRN 30 days alendronate 70 mg PO QWEEK atorvastatin 20 mg PO BEDTIME 90 days calcium citrate 200 mg PO DAILY 30 days cholecalciferol (vitamin D3) 25 mcg PO DAILY 90 days cyanocobalamin (vitamin B-12) 1,000 mcg sublingual DAILY 90 days ferrous sulfate (iron) 325 mg PO DAILY 90 days lisinopril-hydrochlorothiazide 10-12.5 mg 1 tab PO DAILY 90 days sertraline 25 mg PO DAILY HPI HPI Comments History of Present Illness Details This is an 82-year-old female who was referred by her PCP for evaluation of osteoporosis. Patient has no major complaints today. She denies any history of fractures. She is unaware of any family history of osteoporosis or multiple fractures. [facility] [place] Medical History History of left breast cancer Depression Hypovitaminosis D B12 deficiency Essential hypertension Surgical History History of eye surgery History of lumpectomy of left breast History of cholecystectomy History of hysterectomy Family History Father No problems noted. Mother No problems noted. Brother Lung cancer Social History Household Members Other:: Son Housing: Apartment Alcohol intake: never Patient Tobacco Use Status: Never used Tobacco e-Cigarette/Vaping Use: Never Used Second Hand Smoke Exposure: No service: No Current occupational status: unemployed Cognitive needs: Yes (cane, walker ) Hearing needs: No Vision needs: Yes Review of Systems Psych Reports anxiety Physical Exam Vital Signs: Last Vital Signs Temp 97.4 F 03/19/23 08:32 Pulse 73 03/19/23 08:32 BP 126/62 03/19/23 08:32 Pulse Ox 96 03/19/23 08:32 BMI result Body Mass Index 29.5 Const Other: Upper jaw Dentures Lack of teeth bottom jaw General: cooperative, healthy appearing and comfortable Nutritional Appearance: overweight Orientation/consciousness: patient oriented x3 Limitations: no limitations HEENT Head: Yes normocephalic and Yes atraumatic Resp Effort & Inspection: normal respiratory effort and able to speak in complete sentences Auscultation: clear to auscultation bilaterally Cardio Rate: regular rate Rhythm: regular rhythm Skin General skin exam: no rashes or lesions noted Neuro General: patient oriented x3 Extrem Other: Minimal osteoarthritic changes of both hands with no active synovitis Normal gait Assessment & Plan Assessment & Plan (1) Osteoporosis: Comment: DEXA 12/2022, T-score -2.8 left femoral neck Left femur total-2.1 L-spine -1.9 Code(s): M81.0 - Age-related osteoporosis without current pathological fracture Qualifiers: Osteoporosis type: age-related Presence of current pathological fracture: without current pathological fracture Qualified Code(s): M81.0 - Age- related osteoporosis without current pathological fracture Plan: This is an 82-year-old female who was referred by her PCP for evaluation of osteoporosis. There is no known history of fractures. No known family history of osteoporosis or fractures. Discussed nature of osteoporosis with patient. Will need to start antiresorptive therapy. Discussed risks and benefits of bisphosphonates. Patient agreed to proceed. Will start alendronate 70 mg once weekly. Patient has dentures and not planning to get any implants. Patient's vitamin-D level is at goal. Continue calcium and vitamin-D supplementation Plan to repeat DEXA 03/2025 Labs before next visit in 6 months Plan I spent 46 minutes reviewing patient's chart, evaluating patient, ordering diagnostic workup, counseling patient and documenting in the chart Orders: Orders Basic Metabolic Panel 6 Months M81.0 - Age-related osteoporosis without current pathological fracture Vitamin D 25-OH (D2 and D3) 6 Months E55.9 - Vitamin D deficiency, unspecified Medications: New alendronate take 1 tab once weekly, first thing in the morning on an empty stomach with a large glass of water (at least 6 Oz) and stay upright for 30 minutes 70 mg PO QWEEK 12 tabs 1RF Coding Level of Care Code Est Pt Level 4 (24212) Diagnoses Age-related osteoporosis without current pathological fracture M81.0 Osteoporosis type: age-related Presence of current pathological fracture: without current pathological fracture
== END 2023-03-19 09:06 | disposition home or self-care (01) ==
PROVIDERS: PCP Internal Medicine; Visit Provider Student in an Organized Health Care Education/Training Program
DX: M81.0 Age-related osteoporosis without current pathological fracture (principal)
CPT/HCPCS: 99214

== ENCOUNTER → 2023-03-19 08:18 | Outpatient (BNVA) | payer OTHER, SELFPAY | PROVIDERS: PCP Internal Medicine; Visit Provider Student in an Organized Health Care Education/Training Program | DX: M81.0 Age-related osteoporosis without current pathological fracture (principal) | CPT/HCPCS: 99212 ==

== ENCOUNTER 2023-07-15 13:43 | Outpatient (REF) | payer OTHER, SELFPAY ==
--- NOTE | ~2023-07-15 | MM_ITS ---
EXAMINATION: MM SCREENING DIGITAL BREAST TOMOSYNTHESIS, BILATERAL CLINICAL INFORMATION: Screening. Asymptomatic. Status post diagnosis and treatment of left breast cancer in 2016. COMPARISON: Mammography: This study is compared with prior exams dating back to 2018. TECHNIQUE: Digital breast tomosynthesis is performed in both the craniocaudal and mediolateral oblique views along with computer-aided detection (CAD). Synthesized 2D images are generated from the tomosynthesis. FINDINGS: There are scattered areas of fibroglandular density (ACR BI-RADS breast composition Category b). There are no significant masses, abnormal calcifications, or other abnormalities. There are postsurgical changes in the upper outer quadrant of the left breast. MM/MM tomosynthesis screening BI IMPRESSION: No mammographic evidence of malignancy. ASSESSMENT: BI-RADS BI-RADS 2 - Benign Findings RECOMMENDATION: Routine annual mammography screening. 1 year F/U This examination should not preclude the clinical evaluation of a suspicious palpable abnormality. This patient's information was entered into a reminder system with a target due date for their next mammogram.
== END 2023-07-15 13:44 | disposition home or self-care (01) ==
LOC: HO.MAMMO 13:43
PROVIDERS: PCP Internal Medicine; Visit Provider Internal Medicine
DX: Z12.31 Encounter for screening mammogram for malignant neoplasm of breast (principal)
CPT/HCPCS: 77063; 77067

== ENCOUNTER → 2023-07-15 14:00 | Outpatient (BNV) | payer OTHER, SELFPAY | PROVIDERS: PCP Internal Medicine; Visit Provider Radiology Diagnostic Radiology | DX: Z12.31 Encounter for screening mammogram for malignant neoplasm of breast (principal) | CPT/HCPCS: 77063; 77067 ==

== ENCOUNTER 2023-09-17 07:57 | Outpatient (AMB) | payer OTHER, SELFPAY ==
--- NOTE | 2023-09-17 07:59 | MHC.OFFVIS ---
Vital Signs 09/17/23 08:00 Height 4 ft 9 in Weight 139 lb 1.787 oz BMI 30.1 BP 118/60 Blood Pressure Location Rt brachial Pulse Source Pulse Oximeter Comment HR and O2 not measured by pulse ox Intake Visit Reasons: Osteoporosis Intake Note: Patient last seen 03/19/23 presents today for follow up and test results. Level Vial Curvature Gauger Required: Yes Level Vial Curvature Gauger Name: Raquel Morales - form signed Accompanied by: Daughter in law Raquel Allergies ENVIRONMENTAL Allergy (Mild, Uncoded 09/17/23 08:09) SWOLLEN EYES FROM POLLEN Medication List - Last Reconciled 09/17/23 by Ofelia Montenegro MD acetaminophen ER (Mapap Arthritis Pain) 1,300 mg (2 x 650 mg) PO Q8H PRN 30 days alendronate 70 mg PO QWEEK atorvastatin 20 mg PO BEDTIME 90 days calcium citrate 200 mg PO DAILY 30 days cholecalciferol (vitamin D3) 25 mcg PO DAILY 90 days cyanocobalamin (vitamin B-12) 1,000 mcg sublingual DAILY 90 days ferrous sulfate (iron) 325 mg PO DAILY 90 days lisinopril-hydrochlorothiazide 10-12.5 mg 1 tab PO DAILY 90 days sertraline 25 mg PO DAILY HPI Comments Details: This is an 82-year-old female with osteoporosis who presents for follow-up. Doing well overall. Has no complaints today. On alendronate once weekly. Well-tolerated. [facility] and does different social activities and exercises. No falls or fractures since last visit [facility] Medical History History of left breast cancer Depression Hypovitaminosis D B12 deficiency Essential hypertension Surgical History History of eye surgery History of lumpectomy of left breast History of cholecystectomy History of hysterectomy Family History Father No problems noted. Mother No problems noted. Brother Lung cancer Social History Household Members Other:: Son Housing: Apartment Alcohol intake: never Patient Tobacco Use Status: Never used Tobacco e-Cigarette/Vaping Use: Never Used Second Hand Smoke Exposure: No service: No Current occupational status: unemployed Cognitive needs: Yes (cane, walker ) Hearing needs: No Vision needs: Yes Review of Systems Musc Denies back pain and Denies arthralgias Physical Exam Vital Signs: Last Vital Signs BP 118/60 09/17/23 08:00 BMI result Body Mass Index 30.1 Const Other: Upper jaw Dentures Lack of teeth bottom jaw General: cooperative, healthy appearing and comfortable Nutritional Appearance: overweight Orientation/consciousness: patient oriented x3 Limitations: no limitations HEENT Head: Yes normocephalic and Yes atraumatic Resp Effort & Inspection: normal respiratory effort and able to speak in complete sentences Auscultation: clear to auscultation bilaterally Cardio Rate: regular rate Rhythm: regular rhythm Skin General skin exam: no rashes or lesions noted Neuro General: patient oriented x3 Extrem Other: Minimal osteoarthritic changes of both hands with no active synovitis Normal gait Assessment & Plan Assessment & Plan (1) Osteoporosis: Comment: DEXA 12/2022, T-score -2.8 left femoral neck Left femur total-2.1 L-spine -1.9 Alendronate 02/2023 Code(s): M81.0 - Age-related osteoporosis without current pathological fracture Category: Medical Qualifiers: Osteoporosis type: age-related Presence of current pathological fracture: without current pathological fracture Qualified Code(s): M81.0 - Age-related osteoporosis without current pathological fracture Plan: This is an 83-year-old female with osteoporosis who presents for follow-up. No falls or fractures since last visit. Remains on alendronate 70 mg weekly. Well-tolerated. Check BMP and vitamin-D level today. Continue alendronate 70 mg weekly Plan to repeat DEXA 03/2025 Labs before next visit in 6 months Plan I spent 16 minutes reviewing patient's chart, evaluating patient, ordering diagnostic workup, counseling patient and documenting in the chart Orders: Orders Basic Metabolic Panel 6 Months M81.0 - Age-related osteoporosis without current pathological fracture Vitamin D 25-OH (D2 and D3) 6 Months Z13.21 - Encounter for screening for nutritional disorder Coding Level of Care Code Est Pt Level 3 (42477) Diagnoses Age-related osteoporosis without current pathological fracture M81.0 Osteoporosis type: age-related Presence of current pathological fracture: without current pathological fracture
[2023-09-17 08:00] VITALS: BP 118/60; BMI 30.1
== END 2023-09-17 08:15 | disposition home or self-care (01) ==
PROVIDERS: PCP Internal Medicine; Visit Provider Student in an Organized Health Care Education/Training Program
DX: M81.0 Age-related osteoporosis without current pathological fracture (principal)
CPT/HCPCS: 99213

== ENCOUNTER → 2023-09-17 07:57 | Outpatient (BNVA) | payer OTHER, SELFPAY | PROVIDERS: PCP Internal Medicine; Visit Provider Student in an Organized Health Care Education/Training Program | DX: M81.0 Age-related osteoporosis without current pathological fracture (principal) | CPT/HCPCS: 36415; 80048; 82306; 99212 ==

== ENCOUNTER 2023-09-17 08:20 | Outpatient (REF) | payer OTHER, SELFPAY ==
[2023-09-17 11:13] LABS: Anion Gap 14 (12-20); Blood Urea Nitrogen 27 mg/dL (9-16); Calcium 10.6 mg/dL (8.4-10.2); Carbon Dioxide 27 mmol/L (22-29); Chloride 104 mmol/L (96-108); Estimated Glomerular Filt Rate > 60; Glucose Random 100 mg/dL (60-115); Sodium 141 mmol/L (135-145)
[2023-09-21 14:38] LABS: Vitamin D 25-OH, D2 <4 ng/mL; Vitamin D 25-OH, D3 36 ng/mL; Vitamin D 25-OH, Total 36 ng/mL (30-100)
== END 2023-09-17 08:21 | disposition home or self-care (01) ==
LOC: HO.10HDL 08:20
PROVIDERS: Visit Provider Student in an Organized Health Care Education/Training Program
DX: Z13.89 Encounter for screening for other disorder (principal)
CPT/HCPCS: 36415; 80048; 82306

== ENCOUNTER 2023-09-23 07:57 | Outpatient (AMB) | payer OTHER, SELFPAY ==
--- NOTE | 2023-09-23 08:16 | MHC.PC.OV ---
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 Required: No Accompanied by: PHOTOGRAPHER NEWS Allergies ENVIRONMENTAL Allergy (Mild, Uncoded 09/23/23 08:34) SWOLLEN EYES FROM POLLEN Medication List - Last Reconciled 09/23/23 by Christy Powell MD acetaminophen ER (Mapap Arthritis Pain) 1,300 mg (2 x 650 mg) PO Q8H PRN 30 days alendronate 70 mg PO QWEEK atorvastatin 20 mg PO BEDTIME 90 days calcium citrate 200 mg PO DAILY 30 days cholecalciferol (vitamin D3) 25 mcg PO DAILY 90 days cyanocobalamin (vitamin B-12) 1,000 mcg sublingual DAILY 90 days ferrous sulfate (iron) 325 mg PO DAILY 90 days lisinopril-hydrochlorothiazide 10-12.5 mg 1 tab PO DAILY 90 days sertraline 25 mg PO DAILY Tobacco use date assessed: 09/23/23 Fall risk assessment: No Falls in past year Last assessed Fall Risk: 09/23/23 Dental Screening Dental Screen Date: 09/23/23 Did you have a dental visit in the last 12 months?: No Did you have a dental problem in the last 6 months where you did not have access to dental care?: No Was dental information given to patient?: Patient has dentist HPI HPI Comments History of Present Illness Details This is an 82-year-old female with hypertension, pure hypercholesterolemia, iron-deficiency anemia, mild major depression and osteoporosis that comes today accompanied by PHOTOGRAPHER NEWS for follow-up on her conditions. Blood pressure stable. On statins for her cholesterol. Last hemoglobin was low and this will be repeated and she is compliant with her ferrous sulfate. Depression well control with sertraline. Has osteoporosis shown by bone density in 2022 and is on alendronate once a week. Osteoporosis is follow by Rheumatology. Has elevated calcium that will be repeated. No chest pain or shortness of breath. [facility] Medical History History of left breast cancer Depression Hypovitaminosis D B12 deficiency Essential hypertension Surgical History History of eye surgery History of lumpectomy of left breast History of cholecystectomy History of hysterectomy Family History Father No problems noted. Mother No problems noted. Brother Lung cancer Social History Household Members Other:: Son Housing: Apartment Alcohol intake: never Patient Tobacco Use Status: Never used Tobacco e-Cigarette/Vaping Use: Never Used Second Hand Smoke Exposure: No service: No Current occupational status: unemployed Cognitive needs: Yes (cane, walker ) Hearing needs: No Vision needs: Yes Questionnaire PHQ-9 Over the last 2 weeks, how often have you been bothered by any of the following problems? 1. Little interest or pleasure in doing things: not at all 2. Feeling down, depressed, or hopeless: not at all 3. Trouble falling or staying asleep, or sleeping too much: not at all 4. Feeling tired or having little energy: not at all 5. Poor appetite or overeating: not at all 6. Feeling bad about yourself - or that you are a failure or have let yourself or your family down: not at all 7. Trouble concentrating on things, such as reading the newspaper or watching television: not at all 8. Moving or speaking so slowly that other people could have noticed. Or the opposite - being so fidgety or restless that you have been moving around a lot more than usual: not at all 9. Thoughts that you would be better off or of hurting yourself in some way: not at all Total score: 0 Depression Screening Interpretation: Negative Depression Screening Done: Yes 09512 - PHQ-9 Billing: Yes Source: Developed by Drs. Sarbjit Hilario, Alisa Collins, Ramana Monterroso and colleagues, with an educational marcelo from [employer]. Thrive Questionnaire Date Thrive assessed: 09/23/23 I am a: Patient What is your living situation today?: I have a steady place to live Within the past 12 months, did the food you bought not last and you didn't have the money to get more?: Never true Within the past 12 months, did you worry whether your food would run out before you got money to buy more?: Never true Do you have trouble paying for medicines?: No Do you have trouble getting transportation to medical appointments?: No Do you have trouble paying your heating and electricity bill?: No Do you have trouble taking care of your child, family member or friend?: No Do you have trouble with day-to-day activities such as bathing, preparing meals, shopping, managing finances, etc.?: No Are you currently unemployed and looking for a job?: No Are you interested in more education?: No Please select the resources that you would like help with: None Currently or been in a relationship where the following occur: no concerns reported THRIVE Score: 0 AUDIT C Alcohol Use Questionnaire (AUDIT-C) 1. How often do you have a drink containing alcohol?: Never Total Score: 0 Score Reviewed/Action Taken: No OLIVER-7 AMB Questionnaire OLIVER-7 Date OLIVER - 7 assessed: 09/23/23 Feeling nervous, anxious, or on edge: 0 = Not at all Not being able to stop or control worryin = Not at all Worrying too much about different things: 0 = Not at all Trouble relaxin = Not at all Being so restless that it is hard to sit still: 0 = Not at all Becoming easily annoyed or irritable: 0 = Not at all Feeling afraid as if something awful might happen: 0 = Not at all Total OLIVER-7 score (0-4 normal; 5-9 mild; 10-14 moderate; 15-21 severe): 0 Source: Developed by Drs. Sarbjit Hilario, Alisa Collins, Ramana Monterroso and colleagues, with an educational marcelo from [employer]. OLIVER-7 Assessment Billing OLIVER-7 Assessment Tool: OLIVER-7 Assessment 76967 Review of Systems Const All systems reviewed & are unremarkable except as noted in HPI and below Eyes Reports no additional complaints, Denies change in vision and Denies other visual disturbances Card Denies chest pain at rest, Denies chest pain with activity, Denies edema, Denies irregular heart rhythm, Denies claudication, Denies dyspnea, Denies dyspnea on exertion, Denies orthopnea, Denies paroxysmal nocturnal dyspnea and Denies slow heart rate Resp Denies cough, Denies dyspnea and Denies dyspnea on exertion Physical exam (Primary Care) Vital Signs: Last Vital Signs BP 128/64 09/23/23 08:18 BMI result Body Mass Index 30.1 Tobacco/Smoking Status: Tobacco use Status Tobacco use date assessed 09/23/23 09/23/23 08:23 Patient Tobacco Use Status Never used Tobacco 09/23/23 08:23 e-Cigarette/Vaping Use Never Used 09/23/23 08:23 PHQ-9: PHQ-9 Score PHQ-9: Total score 0 09/23/23 08:36 Depression Screening Interpretation: Negative Thrive Assessment: Date of Thrive Assessment Date Thrive assessed 09/23/23 09/23/23 08:23 Currently or been in a relationship where the following occur: no concerns reported Resp Effort & Inspection: normal respiratory effort Auscultation: clear to auscultation bilaterally Cardio Jugular venous distension: no JVD Rate: regular rate Rhythm: regular rhythm Heart sounds: S1 normal heart sound present and S2 normal heart sound present Extrem General: Yes full ROM Psych Appearance: grossly normal Assessment and Plan Assessment & Plan (1) Mild major depression: Code(s): F32.0 - Major depressive disorder, single episode, mild Plan: Continue sertraline. (2) Osteoporosis: Comment: DEXA 12/2022, T-score -2.8 left femoral neck Left femur total-2.1 L-spine -1.9 Alendronate 02/2023 Code(s): M81.0 - Age-related osteoporosis without current pathological fracture Qualifiers: Osteoporosis type: age-related Presence of current pathological fracture: without current pathological fracture Qualified Code(s): M81.0 - Age-related osteoporosis without current pathological fracture Plan: Continue alendronate once a week. Follow-up with rheumatology. (3) Iron (Fe) deficiency anemia: Code(s): D50.9 - Iron deficiency anemia, unspecified Plan: Continue ferrous sulfate. Repeat CBC. (4) Pure hypercholesterolemia: Code(s): E78.00 - Pure hypercholesterolemia, unspecified Plan: Continue statins. (5) Essential hypertension: Code(s): I10 - Essential (primary) hypertension Plan: Continue lisinopril-hydrochlorothiazide. Blood pressure goal is equal or less than 130/80. Orders: Orders Complete Blood Count Auto Diff Today D64.9 - Anemia, unspecified IRON PROFILE Today D64.9 - Anemia, unspecified Vitamin B12 and Folate Today E53.8 - Deficiency of other specified B group vitamins Lipid Panel Today E78.5 - Hyperlipidemia, unspecified Comprehensive [place]. Panel Fast Today E78.00 - Pure hypercholesterolemia, unspecified Coding Level of Care Code Est Pt Level 4 (44506) Diagnoses Mild major depression F32.0 Age-related osteoporosis without current pathological fracture M81.0 Osteoporosis type: age-related Presence of current pathological fracture: without current pathological fracture Iron (Fe) deficiency anemia D50.9 Pure hypercholesterolemia E78.00 Essential hypertension I10 Additional Codes OLIVER-7 Assessment Billing - OLIVER-7 Assessment Tool: OLIVER-7 Assessment [id number] ([id number]) Time Spent (min) 23
[2023-09-23 08:18] VITALS: BP 128/64; BMI 30.1
== END 2023-09-23 08:42 | disposition home or self-care (01) ==
PROVIDERS: PCP Internal Medicine; Visit Provider Internal Medicine
DX: D50.9 Iron deficiency anemia, unspecified (principal); F32.0 Major depressive disorder, single episode, mild; M81.0 Age-related osteoporosis without current pathological fracture; E78.00 Pure hypercholesterolemia, unspecified; I10 Essential (primary) hypertension
CPT/HCPCS: 99214

== ENCOUNTER 2023-10-03 07:55 | Outpatient (REF) | payer OTHER, SELFPAY ==
[2023-10-03 08:09] LABS: MANUAL DIFF FLAG NO
[2023-10-03 08:18] LABS: Basophils Absolute Auto 0.1 X10*3/uL (0.0-0.2); Basophils Percent Auto 0.9 % (0-2); Eosinophils Absolute Auto 0.1 X10*3/uL (0.0-0.4); Eosinophils Percent Auto 1.2 % (0-4); Hematocrit 30.8 % (37.0-47.0); Imm Gran Abs Auto 0.02 X10*3/uL (0.00-0.03); Imm Gran Pct Auto 0.3 % (0.0-0.4); Lymphocytes Absolute Auto 1.8 X10*3/uL (1.2-4.9); Lymphocytes Percent Auto 30.9 % (20-40); Mean Corpuscular HGB Conc 32.5 g/dl (31.0-35.0); Mean Corpuscular Hemoglobin 31.8 pg (27.0-33.0); Mean Corpuscular Volume 98.1 fL (80.0-98.0); Mean Platelet Volume 12.6 fL (9.4-12.3); Monocytes Absolute Auto 0.4 X10*3/uL (0.1-1.2); Neutrophils Absolute Auto 3.5 x10*3/uL (2.0-8.3); Neutrophils Percent Auto 60.7 % (45-73); Platelet Count 138 X10*3/uL (160-400); Red Blood Count 3.14 X10*6/uL (4.20-5.50); White Blood Count 5.8 X10*3/uL (4.8-10.8)
[2023-10-03 08:44] LABS: Alanine Aminotransferase 22 U/L (0-31); Albumin Level 4.3 g/dL (3.5-5.0); Alkaline Phosphatase 57 U/L (39-117); Anion Gap 14 (12-20); Aspartate Amino Transferase 16 U/L (5-31); Bilirubin Total 0.6 mg/dL (0.0-1.0); Blood Urea Nitrogen 21 mg/dL (9-16); Calcium 9.6 mg/dL (8.4-10.2); Carbon Dioxide 27 mmol/L (22-29); Chloride 106 mmol/L (96-108); Cholesterol 158 mg/dL (<200); Estimated Glomerular Filt Rate > 60; Glucose Fasting 105 mg/dL (60-99); HDL Cholesterol 38 mg/dL (>40); Iron 78 mcg/dL (30-160); LDL Cholesterol Calculated 85 mg/dL (<100); Percent Iron Saturation 31 % (15-50); Potassium 4.1 mmol/L (3.3-5.1); Sodium 143 mmol/L (135-145); Total Iron Binding Capacity 253 mcg/dL (228-428); Total Protein 6.9 g/dL (6.5-8.0); Triglycerides 175 mg/dL (<150); Unsaturated Iron Binding 175 ug/dL
[2023-10-03 09:14] LABS: Folate 13.8 ng/mL (> or = 4.0); Vitamin B12 856 pg/mL (200-900)
== END 2023-10-03 07:56 | disposition home or self-care (01) ==
LOC: HO.LAB 07:55
PROVIDERS: PCP Internal Medicine; Visit Provider Internal Medicine
DX: D64.9 Anemia, unspecified (principal); E78.00 Pure hypercholesterolemia, unspecified; E78.5 Hyperlipidemia, unspecified; E53.8 Deficiency of other specified B group vitamins; E55.9 Vitamin D deficiency, unspecified
CPT/HCPCS: 36415; 80053; 80061; 82306; 82607; 82746; 83540; 85025

== ENCOUNTER 2023-12-04 08:30 | Emergency (ER) | payer OTHER, SELFPAY ==
[2023-12-04 08:40] VITALS: BP 184/53; PULSE 71; RESP 16; TEMP 36.2; O2SAT 99; BMI 33.8
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
== END 2023-12-04 09:58 | disposition home or self-care (01) ==
PROVIDERS: Emergency Provider Emergency Medicine; PCP Internal Medicine
DX: Z04.1 Encounter for examination and observation following transport accident (principal); M25.512 Pain in left shoulder; M25.562 Pain in left knee; M25.561 Pain in right knee; R07.81 Pleurodynia
CPT/HCPCS: 99281; 99282

== ENCOUNTER 2024-01-14 07:12 | Outpatient (AMB) | payer OTHER, SELFPAY ==
[2024-01-14 07:35] VITALS: BP 102/52; PULSE 67; O2SAT 98; BMI 33.3
--- NOTE | 2024-01-14 07:35 | A.OFFPC_ITS ---
Vital Signs 01/14/24 07:35 Height 4 ft 6 in Weight 138 lb BMI 33.3 BP 102/52 L Blood Pressure Location Lt brachial Position Sitting Pulse 67 Pulse Source Pulse Oximeter Pulse Oximetry (%) 98 Oxygen Delivery Method Room Air Intake Visit Reasons: PE Vp Cardiovascular Service Line Required: No Accompanied by: Self / Same As Patient Allergies ENVIRONMENTAL Allergy (Mild, Uncoded 01/14/24 07:50) SWOLLEN EYES FROM POLLEN Medication List - Last Reconciled 01/14/24 by Christy Powell MD acetaminophen ER (Mapap Arthritis Pain) 1,300 mg (2 x 650 mg) PO Q8H PRN 30 days alendronate 70 mg PO QWEEK atorvastatin 20 mg PO BEDTIME 90 days calcium citrate 200 mg PO DAILY 30 days cholecalciferol (vitamin D3) 25 mcg PO DAILY 90 days cyanocobalamin (vitamin B-12) 1,000 mcg sublingual DAILY 90 days ferrous sulfate (iron) 325 mg PO DAILY 90 days lisinopril-hydrochlorothiazide 10-12.5 mg 1 tab PO DAILY 90 days sertraline 25 mg PO DAILY Tobacco use date assessed: 01/14/24 Fall risk assessment: No Falls in past year Last assessed Fall Risk: 01/14/24 Dental Screening Dental Screen Date: 01/14/24 Did you have a dental visit in the last 12 months?: No Did you have a dental problem in the last 6 months where you did not have access to dental care?: No HPI HPI Comments History of Present Illness Details This is an 83-year-old female with mild major depression that comes accompanied by daughter in-law for her physical exam. Depression still present with sertraline 25 mg and I will increase it to 50 mg. Mammogram done 2023. Bone DXA scan done 2022 showing osteoporosis and will follow with rheumatology. Had an abnormal hearing test due to hearing loss but insurance does not cover hearing aids. Will be referred to ENT. She is obese with a BMI of 33.3 and was advised to do diet and exercise to reach BMI goal less than 30. Blood pressure borderline normal to low and I will change lisinopril-hydrochlorothiazide to lisinopril only. [facility] Medical History (Updated 01/14/24 @ 08:39 by Christy Powell MD) History of left breast cancer Depression Hypovitaminosis D B12 deficiency Essential hypertension Surgical History History of eye surgery History of lumpectomy of left breast History of cholecystectomy History of hysterectomy Family History Father No problems noted. Mother No problems noted. Brother Lung cancer Social History Household Members Other:: Son Housing: Apartment Alcohol intake: never Patient Tobacco Use Status: Never used Tobacco Tobacco use type: Cigarette e-Cigarette/Vaping Use: Never Used Second Hand Smoke Exposure: No service: No Current occupational status: unemployed Cognitive needs: Yes (yany vega ) Hearing needs: No Vision needs: Yes Questionnaire PHQ-9 Over the last 2 weeks, how often have you been bothered by any of the following problems? 1. Little interest or pleasure in doing things: not at all 2. Feeling down, depressed, or hopeless: several days 3. Trouble falling or staying asleep, or sleeping too much: nearly every day 4. Feeling tired or having little energy: more than half the days 5. Poor appetite or overeating: not at all 6. Feeling bad about yourself - or that you are a failure or have let yourself or your family down: not at all 7. Trouble concentrating on things, such as reading the newspaper or watching television: not at all 8. Moving or speaking so slowly that other people could have noticed. Or the opposite - being so fidgety or restless that you have been moving around a lot more than usual: not at all 9. Thoughts that you would be better off or of hurting yourself in some way: not at all Total score: 6 Depression Screening Interpretation: Positive Depression Screening Follow-up: Existing condition, In treatment and Follow-up Visit Requested Depression Screening Done: Yes 34088 - PHQ-9 Billing: Yes Source: Developed by Drs. Sarbjit Hilario, Alisa Collins, Ramana Monterroso and colleagues, with an educational marcelo from [employer]. Thrive Questionnaire Date Thrive assessed: 01/14/24 I am a: Patient What is your living situation today?: I have a steady place to live Within the past 12 months, did the food you bought not last and you didn't have the money to get more?: Never true Within the past 12 months, did you worry whether your food would run out before you got money to buy more?: Never true Do you have trouble paying for medicines?: No Do you have trouble getting transportation to medical appointments?: No Do you have trouble paying your heating and electricity bill?: No Do you have trouble taking care of your child, family member or friend?: No Do you have trouble with day-to-day activities such as bathing, preparing meals, shopping, managing finances, etc.?: No Are you currently unemployed and looking for a job?: No Are you interested in more education?: No Please select the resources that you would like help with: None Currently or been in a relationship where the following occur: No concerns reported THRIVE Score: 0 AUDIT C Alcohol Use Questionnaire (AUDIT-C) 1. How often do you have a drink containing alcohol?: Never 3. How often do you have six or more drinks on one occasion?: Never Total Score: 0 Score Reviewed/Action Taken: No OLIVER-7 AMB Questionnaire OLIVER-7 Date OLIVER - 7 assessed: 01/14/24 Feeling nervous, anxious, or on edge: 2 = More than half the days Not being able to stop or control worryin = Several days Worrying too much about different things: 1 = Several days Trouble relaxin = More than half the days Being so restless that it is hard to sit still: 2 = More than half the days Becoming easily annoyed or irritable: 1 = Several days Feeling afraid as if something awful might happen: 1 = Several days Total OLIVER-7 score (0-4 normal; 5-9 mild; 10-14 moderate; 15-21 severe): 10 Source: Developed by Drs. Sarbjit Hilario, Alisa Collins, Ramana Monterroso and colleagues, with an educational marcelo from [employer]. OLIVER-7 Assessment Billing OLIVER-7 Assessment Tool: OLIVER-7 Assessment 09017 Review of Systems Const All systems reviewed & are unremarkable except as noted in HPI and below ENT Reports hearing loss Card Denies chest pain at rest, Denies chest pain with activity, Denies edema, Denies irregular heart rhythm, Denies claudication, Denies dyspnea, Denies dyspnea on exertion, Denies orthopnea, Denies paroxysmal nocturnal dyspnea and Denies slow heart rate Resp Denies cough, Denies dyspnea and Denies dyspnea on exertion GI Denies abdominal pain, Denies change in bowel habits, Denies excessive flatus, Denies nausea and Denies vomiting Denies urinary incontinence, Denies urinary hesitancy and Denies urinary urgency Musc Denies atrophy, Denies deformity and Denies limited range of motion Physical exam (Primary Care) Vital Signs: Last Vital Signs Pulse 67 01/14/24 07:35 BP 102/52 L 01/14/24 07:35 Pulse Ox 98 01/14/24 07:35 Oxygen Delivery Method Room Air 01/14/24 07:35 BMI result Body Mass Index 33.3 BMI Assessment/Plan discussion: High BMI High, discussed plan: lifestyle, weight reduction, dietary and physical activity Tobacco/Smoking Status: Tobacco use Status Tobacco use date assessed 01/14/24 01/14/24 07:44 Patient Tobacco Use Status Never used Tobacco 01/14/24 07:44 Tobacco use type Cigarette 01/14/24 07:44 e-Cigarette/Vaping Use Never Used 01/14/24 07:44 PHQ-9: PHQ-9 Score PHQ-9: Total score 6 01/14/24 07:44 Depression Screening Interpretation: Positive Depression Screening Follow-up: Existing condition, In treatment and Follow-up Visit Requested Thrive Assessment: Date of Thrive Assessment Date Thrive assessed 01/14/24 01/14/24 07:44 Currently or been in a relationship where the following occur: No concerns reported Const General: cooperative and comfortable HENLA Head: Yes normal to inspection, Yes normocephalic and Yes atraumatic Ears: external ears normal and hearing grossly impaired bilaterally Eyes General: appearance normal, both eyes and all related structures Eyelids: Yes eyelids normal Conjunctivae: conjunctivae normal Neck Neck: Yes normal visual inspection and Yes supple Resp Effort & Inspection: normal respiratory effort Auscultation: clear to auscultation bilaterally Cardio Jugular venous distension: no JVD Rate: regular rate Rhythm: regular rhythm Heart sounds: S1 normal heart sound present and S2 normal heart sound present GI Inspection: Yes normal to inspection Palpation (GI): Soft to palpation and nontender Auscultation: normal bowel sounds Skin General skin exam: no rashes or lesions noted Neuro General: no focal motor deficits Extrem General: Yes full ROM Psych Appearance: grossly normal Assessment and Plan Assessment & Plan (1) Physical exam: Code(s): Z00.00 - Encounter for general adult medical examination without abnormal findings Plan: Repeat in a year. (2) Mild major depression: Code(s): F32.0 - Major depressive disorder, single episode, mild Plan: Increase sertraline to 50 mg. (3) Hearing loss: Code(s): H91.90 - Unspecified hearing loss, unspecified ear Plan: Referred to ENT. Orders: Orders Lipid Panel Today E78.5 - Hyperlipidemia, unspecified Vitamin D 25-OH Total Today E55.9 - Vitamin D deficiency, unspecified Vitamin B12 and Folate Today E53.8 - Deficiency of other specified B group vitamins Comprehensive [place]. Panel Fast Today I10 - Essential (primary) hypertension Referrals Ear/Nose/Throat Referral H91.90 - Unspecified hearing loss, unspecified ear Medications: New lisinopril 10 mg PO DAILY 90 days 90 tabs 1RF I10 - Essential (primary) hypertension sertraline 50 mg PO DAILY 90 days 90 tabs 1RF F32.0 - Major depressive disorder, single episode, mild Discontinued sertraline Discontinued Reason: Patient Completed Course 25 mg PO DAILY 28 tabs 0RF lisinopril-hydrochlorothiazide 10-12.5 mg Discontinued Reason: Patient Completed Course 1 tab PO DAILY 90 days 90 tabs 3RF ferrous sulfate (iron) Discontinued Reason: Patient Completed Course 325 mg PO DAILY 90 days 90 tabs 1RF Coding Level of Care Code Est Pt Level 3 (73179) Est Pt Prev Care >65y(07952) Diagnoses Physical exam Z00.00 Mild major depression F32.0 Hearing loss H91.90 Additional Codes OLIVER-7 Assessment Billing - OLIVER-7 Assessment Tool: OLIVER-7 Assessment 60896 ([id number]) Time Spent (min) 35
== END 2024-01-14 08:03 | disposition home or self-care (01) ==
PROVIDERS: PCP Internal Medicine; Visit Provider Internal Medicine
DX: Z00.00 Encounter for general adult medical examination without abnormal findings (principal); F32.0 Major depressive disorder, single episode, mild; H91.93 Unspecified hearing loss, bilateral
CPT/HCPCS: 99213; 99397

== ENCOUNTER 2024-01-14 08:50 | Outpatient (AMB) | payer OTHER, SELFPAY ==
--- NOTE | 2024-01-14 09:10 | A.OFFVIS_ITS ---
Vital Signs 3 01/14/24 09:23 Height 4 ft 6 in Weight 139 lb BMI 33.5 BP 143/67 H Blood Pressure Location Lt brachial Position Sitting Pulse 66 Intake Visit Reasons: Yearly Breast Exam Intake Note: Patient is seen in office for yearly breast exam. Patient c/o: denies any concerns at the time of visit, per pt Alendronate was discontinued by Dr Parra and does not have any follow up appt with her mm:07/15/23 Interactive Marketing Strategist Required: Yes Interactive Marketing Strategist Language: Satin Finisher Services: Interactive Marketing Strategist Present Interactive Marketing Strategist Name: Candi BROWN Information Interpreted: non-clinical & clinical Club Former: Club Former Present Accompanied by: Family/Other Allergies ENVIRONMENTAL Allergy (Mild, Uncoded 01/14/24 09:15) SWOLLEN EYES FROM POLLEN Medication List - Last Reconciled 01/14/24 by Ramin Hines MD acetaminophen ER (Mapap Arthritis Pain) 1,300 mg (2 x 650 mg) PO Q8H PRN 30 days atorvastatin 20 mg PO BEDTIME 90 days calcium citrate 200 mg PO DAILY 30 days cholecalciferol (vitamin D3) 25 mcg PO DAILY 90 days cyanocobalamin (vitamin B-12) 1,000 mcg sublingual DAILY 90 days lisinopril 10 mg PO DAILY 90 days sertraline 50 mg PO DAILY 90 days HPI Comments Details: 83-year-old female patient, former patient of Dr. Fernandez returning for follow- up breast examination. She was found to have a palpable mass in February 2015 in the left breast at the lower outer quadrant. 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 A PET scan revealed evidence of 3 positive axillary lymph nodes. Ultrasound-guided biopsy of the lymph nodes revealed metastatic disease to lymph nodes. She subsequently underwent neoadjuvant chemotherapy under direction of Dr. Parra. She received Taxotere, carboplatin, pertuzumab, and Herceptin. She had a complete clinical response and MRI revealed a complete response. She underwent a left breast lumpectomy with needle localization and left sentinel axillary node biopsy on 08/09/2015. She had a complete pathologic response as well. She subsequently underwent radiation therapy which was completed on 11/28/2015. She underwent Herceptin for 1 year. The patient feels well and denies any new breast symptoms. Her last mammogram dated 07/15/2023 revealed no significant changes from the prior mammogram (BI- RADS 2). Follow-up mammogram is recommended in 1 year. [facility] Medical History History of left breast cancer Depression Hypovitaminosis D B12 deficiency Essential hypertension Surgical History History of eye surgery History of lumpectomy of left breast History of cholecystectomy History of hysterectomy Family History Father No problems noted. Mother No problems noted. Brother Lung cancer Social History Household Members Other:: Son Housing: Apartment Alcohol intake: never Patient Tobacco Use Status: Never used Tobacco Tobacco use type: Cigarette e-Cigarette/Vaping Use: Never Used Second Hand Smoke Exposure: No service: No Current occupational status: unemployed Cognitive needs: Yes (cane, walker ) Hearing needs: No Vision needs: Yes Review of Systems Const All systems reviewed & are unremarkable except as noted in HPI and below Card Reports no additional complaints Resp Reports no additional complaints Denies nipple discharge Skin/Breast Denies breast swelling, Denies breast skin changes, Denies breast pain, Denies breast mass, Denies change in breast shape and Denies nipple discharge Kendall/Lymph Denies lymphadenopathy Physical Exam Const General: no acute distress Nutritional Appearance: well nourished Orientation/consciousness: patient oriented x3 HEENT Head: Yes normocephalic and Yes atraumatic Chest Other: Well-healed incision in the left breast with some residual radiation change especially in the upper outer quadrant of the left breast. No discrete mass, skin change, nipple discharge for axillary lymphadenopathy is identified. Right breast: No skin change, nipple discharge, nipple retraction, palpable mass, or enlarged lymph node is appreciated. Chest/axillae images: 2 1. Radial incision left breast upper outer quadrant Resp Effort & Inspection: normal respiratory effort Skin General skin exam: no rashes or lesions noted Neuro Other: Mobility Assessment: 1. 3 meter assessment time (seconds) 6 sec 2. Gait observations: Normal balance and gait General: patient oriented x3 Extrem General: Yes no clubbing, cyanosis or edema Assessment & Plan Assessment & Plan (1) History of left breast cancer: Code(s): Z85.3 - Personal history of malignant neoplasm of breast Category: Medical Plan: 83-year-old female with a prior history of a locally advanced breast cancer, status post neoadjuvant treatment followed by lumpectomy and sentinel node biopsy, followed by radiation therapy and Herceptin for 1 year. Patient continues to do well and denies any ongoing breast symptoms. Her most recent mammogram of 07/15/2023 reveals no mammographic evidence of malignancy (BI-RADS 2). Examination today reveals no suspicious findings in either breast and no evidence of recurrence disease. She should continue to follow-up with Dr. Parra. She will be due for follow-up yearly mammogram in June 2024. She should return to our office in 1 year, sooner p.r.n.. Coding Level of Care Code Est Pt Level 3 (83249) Diagnoses History of left breast cancer Z85.3
[2024-01-14 09:23] VITALS: BP 143/67; PULSE 66; BMI 33.5
== END 2024-01-14 09:24 | disposition home or self-care (01) ==
PROVIDERS: PCP Internal Medicine; Visit Provider Surgery
DX: Z85.3 Personal history of malignant neoplasm of breast (principal)
CPT/HCPCS: 99213

== ENCOUNTER → 2024-01-14 08:50 | Outpatient (BNVA) | payer OTHER, SELFPAY | PROVIDERS: PCP Internal Medicine; Visit Provider Surgery | DX: Z85.3 Personal history of malignant neoplasm of breast (principal) | CPT/HCPCS: 99212 ==

== ENCOUNTER 2024-01-22 09:09 | Outpatient (AMB) | payer OTHER, SELFPAY ==
[2024-01-22 09:18] VITALS: BP 114/58; PULSE 96; O2SAT 98; BMI 33.5
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
== END 2024-01-22 09:41 | disposition home or self-care (01) ==
PROVIDERS: PCP Internal Medicine
DX: M25.561 Pain in right knee (principal); R07.81 Pleurodynia
CPT/HCPCS: 99214

== ENCOUNTER 2024-02-05 08:14 | Outpatient (AMB) | payer OTHER, SELFPAY ==
--- NOTE | 2024-02-05 08:15 | A.OFFPC_ITS ---
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 Accompanied by: SUPERVISOR SEWER MAINTENANCE Allergies ENVIRONMENTAL Allergy (Mild, Uncoded 02/05/24 08:37) SWOLLEN EYES FROM POLLEN Medication List - Last Reconciled 02/05/24 by Christy Powell MD acetaminophen ER (Mapap Arthritis Pain) 1,300 mg (2 x 650 mg) PO Q8H PRN 30 days atorvastatin 20 mg PO BEDTIME 90 days calcium citrate 200 mg PO DAILY 30 days cholecalciferol (vitamin D3) 25 mcg PO DAILY 90 days cyanocobalamin (vitamin B-12) 1,000 mcg sublingual DAILY 90 days lidocaine 5% 1 patch topical DAILY lisinopril 10 mg PO DAILY 90 days sertraline 50 mg PO DAILY 90 days Tobacco use date assessed: 01/14/24 Fall risk assessment: No Falls in past year Last assessed Fall Risk: 02/05/24 Dental Screening Dental Screen Date: 02/05/24 Did you have a dental visit in the last 12 months?: No Did you have a dental problem in the last 6 months where you did not have access to dental care?: No Was dental information given to patient?: Patient has dentist HPI HPI Comments History of Present Illness Details This is an 83-year-old female with mild recurrent major depression, hypertension, pure hypercholesterolemia and osteoporosis that comes today accompanied by daughter in-law for follow-up on her conditions. Depression stable with SSRIs. Blood pressure well controlled. I will order lipid panel and advised her to follow a low-cholesterol diet. Had a DEXA scan showing osteoporosis and is follow by Rheumatology. No chest pain or shortness on breath. Complains of left hearing loss and I will refer her to speech and hearing. [facility] Medical History History of left breast cancer Depression Hypovitaminosis D B12 deficiency Essential hypertension Surgical History History of eye surgery History of lumpectomy of left breast History of cholecystectomy History of hysterectomy Family History Father No problems noted. Mother No problems noted. Brother Lung cancer Social History Household Members Other:: Son Housing: Apartment Alcohol intake: never Patient Tobacco Use Status: Never used Tobacco e-Cigarette/Vaping Use: Never Used Second Hand Smoke Exposure: No service: No Current occupational status: unemployed Cognitive needs: Yes (cane, walker ) Hearing needs: No Vision needs: Yes Questionnaire Thrive Questionnaire Date Thrive assessed: 01/14/24 Are you currently unemployed and looking for a job?: No OLIVER-7 AMB Questionnaire OLIVER-7 Date OLIVER - 7 assessed: 01/14/24 Source: Developed by Drs. Sarbjit Hilario, Alisa Collins, Ramana Monterroso and colleagues, with an educational marcelo from [employer]. Review of Systems Const All systems reviewed & are unremarkable except as noted in HPI and below ENT Reports hearing loss Card Denies chest pain at rest, Denies chest pain with activity, Denies edema, Denies irregular heart rhythm, Denies claudication, Denies dyspnea, Denies dyspnea on exertion, Denies orthopnea, Denies paroxysmal nocturnal dyspnea and Denies slow heart rate Resp Denies cough, Denies dyspnea and Denies dyspnea on exertion GI Denies abdominal pain, Denies change in bowel habits, Denies excessive flatus, Denies nausea and Denies vomiting Denies urinary incontinence, Denies urinary hesitancy and Denies urinary urgency Musc Denies atrophy, Denies deformity and Denies limited range of motion Skin/Breast Denies bleeding lesions, Denies changing lesions and Denies rash Physical exam (Primary Care) Vital Signs: Last Vital Signs BP 132/60 02/05/24 08:16 BMI result Body Mass Index 33.3 BMI Assessment/Plan discussion: High BMI High, discussed plan: lifestyle, weight reduction, dietary and physical activity Tobacco/Smoking Status: Tobacco use Status Tobacco use date assessed 01/14/24 02/05/24 08:21 Patient Tobacco Use Status Never used Tobacco 02/05/24 08:21 Tobacco use type 02/05/24 08:21 e-Cigarette/Vaping Use Never Used 02/05/24 08:21 Thrive Assessment: Date of Thrive Assessment Date Thrive assessed 01/14/24 02/05/24 08:21 Resp Effort & Inspection: normal respiratory effort Auscultation: clear to auscultation bilaterally Cardio Jugular venous distension: no JVD Rate: regular rate Rhythm: regular rhythm Heart sounds: S1 normal heart sound present and S2 normal heart sound present Extrem General: Yes full ROM Assessment and Plan Assessment & Plan (1) Hearing loss, left: Code(s): H91.92 - Unspecified hearing loss, left ear Qualifiers: Hearing loss type: unspecified Qualified Code(s): H91.92 - Unspecified hearing loss, left ear Plan: Referred to speech and hearing. (2) Osteoporosis: Comment: DEXA 12/2022, T-score -2.8 left femoral neck Left femur total-2.1 L-spine -1.9 Alendronate 02/2023 Code(s): M81.0 - Age-related osteoporosis without current pathological fracture Qualifiers: Osteoporosis type: age-related Presence of current pathological fracture: without current pathological fracture Qualified Code(s): M81.0 - Age- related osteoporosis without current pathological fracture Plan: Follow-up with rheumatology. (3) Mild major depression: Code(s): F32.0 - Major depressive disorder, single episode, mild Plan: Continue SSRIs. (4) Pure hypercholesterolemia: Code(s): E78.00 - Pure hypercholesterolemia, unspecified Plan: Continue statins. Continue low-cholesterol diet. Repeat lipid panel. (5) Essential hypertension: Code(s): I10 - Essential (primary) hypertension Plan: Continue lisinopril. Blood pressure goal is equal or less than 130/80. Orders: Orders Complete Blood Count Auto Diff Today D64.9 - Anemia, unspecified Vitamin D 25-OH (D2 and D3) Today E55.9 - Vitamin D deficiency, unspecified Lipid Panel Today E78.5 - Hyperlipidemia, unspecified IRON PROFILE Today D64.9 - Anemia, unspecified Comprehensive [place]. Panel Fast Today E78.00 - Pure hypercholesterolemia, unspecified Referrals Speech and Hearing Referral H91.92 - Unspecified hearing loss, left ear Medications: Refilled lidocaine 5% leave on most painful area for up to 12 hrs 1 patch topical DAILY 30 ea 0RF Coding Level of Care Code Est Pt Level 4 (58031) Complex EM visit Add On G2211 Diagnoses Hearing loss of left ear, unspecified hearing loss type H91.92 Hearing loss type: unspecified Age-related osteoporosis without current pathological fracture M81.0 Osteoporosis type: age-related Presence of current pathological fracture: without current pathological fracture Mild major depression F32.0 Pure hypercholesterolemia E78.00 Essential hypertension I10 Time Spent (min) 22
[2024-02-05 08:16] VITALS: BP 132/60; BMI 33.3
== END 2024-02-05 08:45 | disposition home or self-care (01) ==
PROVIDERS: PCP Internal Medicine; Visit Provider Internal Medicine
DX: H91.92 Unspecified hearing loss, left ear (principal); M81.0 Age-related osteoporosis without current pathological fracture; F32.0 Major depressive disorder, single episode, mild; E78.00 Pure hypercholesterolemia, unspecified; I10 Essential (primary) hypertension

== ENCOUNTER → 2024-02-05 08:14 | Outpatient (BNVA) | payer OTHER, SELFPAY | PROVIDERS: PCP Internal Medicine; Visit Provider Internal Medicine | DX: H91.92 Unspecified hearing loss, left ear (principal); M81.0 Age-related osteoporosis without current pathological fracture; F32.0 Major depressive disorder, single episode, mild; E78.00 Pure hypercholesterolemia, unspecified; I10 Essential (primary) hypertension | CPT/HCPCS: 99212 ==

== ENCOUNTER 2024-02-19 07:56 | Outpatient (REF) | payer OTHER, SELFPAY | END 2024-02-19 07:57 | disposition home or self-care (01) | LOC: HO.SH 07:56 | PROVIDERS: Visit Provider Internal Medicine | DX: Z01.118 Encounter for examination of ears and hearing with other abnormal findings (principal); H90.3 Sensorineural hearing loss, bilateral | CPT/HCPCS: 92557; 92567 ==

== ENCOUNTER 2024-03-10 13:25 | Emergency (ER) | payer OTHER, SELFPAY ==
[2024-03-10 14:23] VITALS: BP 157/50; PULSE 62; RESP 18; TEMP 36.6; O2SAT 96; BMI 34.8
[2024-03-10 14:53] LABS: MANUAL DIFF FLAG NO
[2024-03-10 14:55] LABS: Basophils Percent Auto 0.5 % (0-2); Eosinophils Absolute Auto 0.1 X10*3/uL (0.0-0.4); Eosinophils Percent Auto 1.9 % (0-4); Hematocrit 32.9 % (37.0-47.0); Hemoglobin 10.5 g/dl (12.0-16.0); Imm Gran Abs Auto 0.02 X10*3/uL (0.00-0.03); Imm Gran Pct Auto 0.3 % (0.0-0.4); Lymphocytes Absolute Auto 1.8 X10*3/uL (1.2-4.9); Lymphocytes Percent Auto 24.3 % (20-40); Mean Corpuscular HGB Conc 31.9 g/dl (31.0-35.0); Mean Corpuscular Volume 97.1 fL (80.0-98.0); Mean Platelet Volume 12.3 fL (9.4-12.3); Monocytes Absolute Auto 0.5 X10*3/uL (0.1-1.2); Monocytes Percent Auto 6.7 % (2-11); Neutrophils Absolute Auto 4.8 x10*3/uL (2.0-8.3); Neutrophils Percent Auto 66.3 % (45-73); Platelet Count 143 X10*3/uL (160-400); Red Blood Count 3.39 X10*6/uL (4.20-5.50); Red Cell Distribution Width 11.9 % (11.0-16.0); White Blood Count 7.3 X10*3/uL (4.8-10.8)
[2024-03-10 15:14] VITALS: BP 155/58; PULSE 61; RESP 18; TEMP 36.5; O2SAT 99
[2024-03-10 15:20] LABS: Alanine Aminotransferase 53 U/L (0-31); Albumin Level 4.5 g/dL (3.5-5.0); Alkaline Phosphatase 61 U/L (39-117); Anion Gap 13 (12-20); Aspartate Amino Transferase 54 U/L (5-31); Bilirubin Total 0.5 mg/dL (0.0-1.0); Blood Urea Nitrogen 18 mg/dL (9-16); Calcium 10.3 mg/dL (8.4-10.2); Carbon Dioxide 27 mmol/L (22-29); Chloride 110 mmol/L (96-108); Creatinine Clr Calc Pharmacy 33.7; Estimated Glomerular Filt Rate > 60; Glucose Random 92 mg/dL (60-115); Lipase 18 U/L (8-78); Magnesium 1.5 mg/dL (1.6-2.6); Potassium 4.4 mmol/L (3.3-5.1); Sodium 146 mmol/L (135-145); Total Protein 7.1 g/dL (6.5-8.0)
[2024-03-10 15:39] LABS: Influenza A PCR NEGATIVE (Negative); Influenza B PCR NEGATIVE (Negative); Resp Syncy Virus RNA Qual PCR NEGATIVE (Negative); SARS COV2 PCR INHOUSE NEGATIVE (Negative)
[2024-03-10 16:15] LABS: Appearance Urine Clear; Color Urine Yellow; Glucose Urine UA Negative (Negative); Leukocyte Esterase Urine Small (1+) (Negative); Nitrite Urine Negative (Negative); PH 5.5 (5.0-9.0); UMIC TRIGGER UACC YES; Urine Blood Negative (Negative); Urine Ketones Negative (Negative); Urine Protein Negative (Neg-Trace)
[2024-03-10 16:18] LABS: Bacteria Urine Trace (None Seen); Hyaline Casts Urine 0-2 /LPF (0-2); RBC Urine 0-2 /HPF (0-2); UACC Culture Trigger YES
[2024-03-10 17:09] LABS: CDiff Gene PCR NEGATIVE (Negative)
--- NOTE | 2024-03-10 17:18 | ED.GENADULT ---
HPI - General Adult General Chief complaint: Ear Problems Stated complaint: Sore throat, diarrhea Time Seen by Provider: 03/10/24 14:54 Source: patient, RN notes reviewed and old records reviewed Mode of arrival: ambulatory History of Present Illness ED Provider: Radha Magaña PA-C [facility] narrative: 83-year-old female with a past medical history of breast CA, depression, vitamin B12 deficiency, HTN, presenting to the ED complaining of right ear pain radiating to throat x 6 days. Admits to slight drainage from ear. Also reports abdominal discomfort and watery nonbloody diarrhea x yesterday. Denies fever, chills, hearing loss, difficulty or inability to swallow, CP/SOB, nausea/vomiting, dysuria/hematuria, travel, suspicious food intake Related Data Previous Rx's ?Medication ?Instructions ?Recorded acetaminophen 650 mg 1,300 mg (2 x 650 mg) PO Q8H PRN 03/04/23 tablet,extended release (Mapap pain 30 days #180 tabs Arthritis Pain) cholecalciferol (vitamin D3) 25 25 mcg PO DAILY 90 days #90 caps 03/04/23 mcg (1,000 unit) capsule atorvastatin 20 mg tablet 20 mg PO BEDTIME 90 days #90 tabs 11/08/23 cyanocobalamin (vitamin B-12) 1,000 mcg sublingual DAILY 90 days 11/10/23 1,000 mcg sublingual tablet #90 tabs lisinopril 10 mg tablet 10 mg PO DAILY 90 days #90 tabs 01/14/24 sertraline 50 mg tablet 50 mg PO DAILY 90 days #90 tabs 01/14/24 lidocaine 5 % topical patch 1 patch topical DAILY #30 ea 02/05/24 calcium citrate 200 mg (950 mg) 200 mg PO DAILY 30 days #30 tabs 02/07/24 tablet ciprofloxacin 0.3 %-dexamethasone 4 drp otic (ear) right Q12H 7 days 03/10/24 0.1 % ear drops,suspension #7.5 mL Allergies Allergy/AdvReac Type Severity Reaction Status Date / Time ENVIRONMENTAL Allergy Mild SWOLLEN Uncoded 03/10/24 14:25 EYES FROM POLLEN Review of Systems Review of Systems: Yes all other systems are reviewed and are negative Constitutional: Constitutional: Reports as per [facility] Past Medical History Attestation statement: The following information was validated with the patient. Source: old records reviewed Medical History History of left breast cancer Depression Hypovitaminosis D B12 deficiency Essential hypertension Surgical History History of eye surgery History of lumpectomy of left breast History of cholecystectomy History of hysterectomy Family History Family History Father No problems noted. Mother No problems noted. Brother Lung cancer Social History Social History Household Members Other:: Son Housing: Apartment Alcohol intake: never Patient Tobacco Use Status: Never used Tobacco e-Cigarette/Vaping Use: Never Used Second Hand Smoke Exposure: No Advance Directives: No Advance Directives Information Provided: No Do you have a plan to hurt others: No Plan service: No Current occupational status: unemployed Cognitive needs: Yes (cane, walker ) Hearing needs: No Vision needs: Yes Physical Exam ED Vital Signs: Vital Signs - 24 hr 03/10/24 14:23 03/10/24 15:14 03/10/24 17:43 Temperature 97.9 F 97.7 F 96.8 F Pulse Rate 62 61 65 Respiratory Rate 18 18 18 Blood Pressure 157/50 H 155/58 H 148/42 H Pulse Oximetry 96 99 98 Oxygen Delivery Method Room Air Room Air Room Air BMI result Body Mass Index 34.8 Const General: cooperative, healthy appearing and no acute distress Orientation/consciousness: patient oriented x3 Limitations: no limitations HENNC Head: Yes normal to inspection and Yes atraumatic Ears: hearing grossly normal bilaterally, TM's normal bilaterally, mastoids normal and Abnormal EAC present edema on the right, EAC tenderness on the right and otic discharge clear on the right General nose exam: Normal external nose present Face and sinus: Yes normal facial exam Mouth: Normal oral and palatal mucosa present Throat: Yes posterior oropharynx normal, Yes tonsils normal, Yes uvula midline, No peritonsillar mass, No uvula laterally displaced and No uvular edema Eyes General: appearance normal, both eyes and all related structures EOM: EOMs intact bilaterally Neck Neck: Yes normal visual inspection and Yes no meningeal signs Resp Effort & Inspection: normal respiratory effort, not labored, no respiratory distress and no stridor Auscultation: clear to auscultation bilaterally Cardio Rate: regular rate Heart sounds: S1 normal heart sound present and S2 normal heart sound present GI Inspection: Yes normal to inspection Palpation (GI): Soft to palpation, Tenderness to palpation present (GI) in the epigastrum; with no rebound tenderness, no guarding and not rigid Skin Rashes: no rashes Wounds: no wounds Neuro General: patient oriented x3, tone normal and no meningeal signs Cranial nerves: Yes CN's II-XII intact bilaterally Gait exam (Neuro): Normal gait present Extrem General: Yes normal to inspection Course Course Course Narrative: -1722--no leukocytosis. H&H at patient's baseline. Magnesium slightly low at 1.5 > p.o. repletion ordered. -Mild elevation in AST/ALT -UA with WBC/leuk esterase and squamous cells. Patient asymptomatic. Will hold on antibiotic treatment until culture results -viral studies negative -C diff negative Results discussed with patient including worrisome signs and symptoms and strict return precautions, and when to return to the emergency department. They verbalized understanding and feel safe for discharge at this time. Medical Decision Making Medical Decision Making [facility] Narrative: 83-year-old female with a past medical history of breast CA, depression, vitamin B12 deficiency, HTN, presenting to the ED complaining of right ear pain radiating to throat x 6 days. Also reports abdominal discomfort and watery nonbloody diarrhea x yesterday. On exam vital signs stable, NAD, nontoxic appearing, physical exam as noted above consistent with right-sided otitis externa. Mastoids WNL. Abdomen soft with mild epigastric tenderness, no rebound or guarding. Concern for gastroenteritis vs infectious diarrhea vs C diff vs pancreatitis. Rule out metabolic abnormalities. Lower suspicion for cholecystitis/lithiasis vs appendicitis/diverticulitis. Low suspicion for mastoiditis Plan: Labs, UA, stool studies, viral testing Please refer to course for remaining clinical decision making, interpretation of labs/imaging results, and discussions with consultants and/or family members. Differential Diagnosis Differential Diagnoses: The differential diagnosis associated with the presentation includes As above Admission/Observation Consideration of admission/observation: Escalation of care including admission/observation considered Lab Data [facility] Lab Attestation statement: I reviewed the patient's lab results. 03/10/24 14:48 03/10/24 14:48 Labs: Lab Results 03/10/24 03/10/24 Range/Units 14:48 16:00 WBC 7.3 (4.8-10.8) X10*3/uL RBC 3.39 L (4.20-5.50) X10*6/uL Hgb 10.5 L (12.0-16.0) g/dl Hct 32.9 L (37.0-47.0) % MCV 97.1 (80.0-98.0) fL MCH 31.0 (27.0-33.0) pg MCHC 31.9 (31.0-35.0) g/dl RDW 11.9 (11.0-16.0) % Plt Count 143 L (160-400) X10*3/uL MPV 12.3 (9.4-12.3) fL Immature Gran % (Auto) 0.3 (0.0-0.4) % Neut % (Auto) 66.3 (45-73) % Lymph % (Auto) 24.3 (20-40) % [place] % (Auto) 6.7 (2-11) % Eos % (Auto) 1.9 (0-4) % Baso % (Auto) 0.5 (0-2) % Lymph # (Auto) 1.8 (1.2-4.9) X10*3/uL [place] # (Auto) 0.5 (0.1-1.2) X10*3/uL Eos # (Auto) 0.1 (0.0-0.4) X10*3/uL Baso # (Auto) 0.0 (0.0-0.2) X10*3/uL Abs Immat Gran (auto) 0.02 (0.00-0.03) X10*3/uL Absolute Neuts (auto) 4.8 (2.0-8.3) x10*3/uL Absolute Nucleated RBC 0.000 (0.0-0.012) X10*3/uL Nucleated RBC % (auto) 0.0 (0.0-0.2) /100WBC Sodium 146 H (135-145) mmol/L Potassium 4.4 (3.3-5.1) mmol/L Chloride 110 H (96-108) mmol/L Carbon Dioxide 27 (22-29) mmol/L Anion Gap 13 (12-20) BUN 18 H (9-16) mg/dL Creatinine 0.84 (0.5-1.4) mg/dL Estim Creat Clear Calc 33.7 Estimated GFR > 60 Random Glucose 92 (60-115) mg/dL Calcium 10.3 H D (8.4-10.2) mg/dL Magnesium 1.5 L (1.6-2.6) mg/dL Total Bilirubin 0.5 (0.0-1.0) mg/dL AST 54 H (5-31) U/L ALT 53 H (0-31) U/L Alkaline Phosphatase 61 (39-117) U/L Total Protein 7.1 (6.5-8.0) g/dL Albumin 4.5 (3.5-5.0) g/dL Lipase 18 (8-78) U/L Urine Color Yellow Urine Appearance Clear Urine pH 5.5 (5.0-9.0) Ur Specific [place] 1.010 (1.005-1.025) Urine Protein Negative (Neg-Trace) mg/dL Urine Glucose (UA) Negative (Negative) mg/dL Urine Ketones Negative (Negative) mg/dL Urine Blood Negative (Negative) Urine Nitrite Negative (Negative) Ur Leukocyte Esterase Small (1+) H (Negative) Urine RBC 0-2 (0-2) /HPF Urine WBC 6-10 H (0-5) /HPF Ur Squamous Epith Cells 3-5 (0-2) /HPF Urine Bacteria Trace (None Seen) Hyaline Casts 0-2 (0-2) /LPF C. difficile Tox B Gene NEGATIVE (Negative) Influenza Type A (PCR) NEGATIVE (Negative) Influenza Type B (PCR) NEGATIVE (Negative) RSV RNA Qual (PCR) NEGATIVE (Negative) SARS-CoV-2 RNA (RT-PCR) NEGATIVE (Negative) Radiology Impression Discussion of test interpretation with radiology: I have reviewed the radiologist's reading. External Record Review External record reviewed: Inpatient record, Office record, Outpatient record, Prior outpatient labs, Prior outpatient radiology, Primary care record and Outside ED record Tests considered The following testing was considered but not selected: As above Prescription Management I considered prescription management with: Pain Medication, Antiviral and Antibiotic Chronic Conditions Patient?s care impacted by: Other Social Determinants Patient?s care significantly limited by Social Determinants of Health including: Other Social Determinant of Health Discharge Plan Discharge Clinical Impression: Otitis externa, Diarrhea Patient Disposition: Home, Self-Care Instructions: Traveler's Diarrhea (ED), Otitis Externa (DC) Additional Instructions: You have an external ear infection. Ciprodex drops or antibiotics steroid drops, please take as prescribed Your blood work and viral testing were otherwise reassuring/negative Make sure you are staying hydrated Follow-up with your doctor If her diarrhea persists or worsens/becomes unbearable, develops blood, you have persistent or worsening abdominal pain return to the ED Prescriptions: New ciprofloxacin-dexamethasone 0.3-0.1 % drops,suspension 4 drp otic (ear) right Q12H 7 Days Qty: 7.5 0RF No Action cholecalciferol (vitamin D3) 25 mcg (1,000 unit) capsule 25 mcg PO DAILY 90 Days Qty: 90 3RF acetaminophen [Mapap Arthritis Pain] 650 mg tablet extended release 1,300 mg PO Q8H PRN (Reason: pain) 30 Days Qty: 180 2RF atorvastatin 20 mg tablet 20 mg PO BEDTIME 90 Days Qty: 90 0RF cyanocobalamin (vitamin B-12) 1,000 mcg tablet, sublingual 1,000 mcg sublingual DAILY 90 Days Qty: 90 1RF calcium citrate 200 mg (950 mg) tablet 200 mg PO DAILY 30 Days Qty: 30 0RF sertraline 50 mg tablet 50 mg PO DAILY 90 Days Qty: 90 1RF lisinopril 10 mg tablet 10 mg PO DAILY 90 Days Qty: 90 1RF lidocaine 5 % adhesive patch,medicated 1 patch topical DAILY Qty: 30 0RF Rx Instructions: leave on most painful area for up to 12 hrs Referrals: Christy Mirza MD [Primary Care Provider] - 5 days Interventions: ED Discharge Assessment Last Done: 03/10/24 17:43 Discharge Date/Time: 03/10/24 17:44 Print Language: [place]
[2024-03-10 17:43] VITALS: BP 148/42; PULSE 65; RESP 18; TEMP 36; O2SAT 98
== END 2024-03-10 17:44 | disposition home or self-care (01) ==
PROVIDERS: Physician Assistant; Physician Assistant Medical; Emergency Provider Emergency Medicine Emergency Medical Services; PCP Internal Medicine
DX: J02.9 Acute pharyngitis, unspecified (principal); H60.91 Unspecified otitis externa, right ear; H92.01 Otalgia, right ear; Z79.899 Other long term (current) drug therapy; Z03.818 Encounter for observation for suspected exposure to other biological agents ruled out
CPT/HCPCS: 0241U; 36415; 80053; 81001; 83690; 83735; 85025; 87086; 87088; 87186; 87493; 99283

== ENCOUNTER 2024-03-16 08:34 | Outpatient (REF) | payer OTHER, SELFPAY ==
[2024-03-16 09:00] LABS: MANUAL DIFF FLAG NO
[2024-03-16 09:21] LABS: Basophils Percent Auto 0.6 % (0-2); Eosinophils Absolute Auto 0.1 X10*3/uL (0.0-0.4); Eosinophils Percent Auto 1.1 % (0-4); Hematocrit 32.4 % (37.0-47.0); Imm Gran Abs Auto 0.01 X10*3/uL (0.00-0.03); Imm Gran Pct Auto 0.2 % (0.0-0.4); Lymphocytes Absolute Auto 1.7 X10*3/uL (1.2-4.9); Lymphocytes Percent Auto 31.5 % (20-40); Mean Corpuscular HGB Conc 30.9 g/dl (31.0-35.0); Mean Corpuscular Hemoglobin 30.9 pg (27.0-33.0); Mean Platelet Volume 12.7 fL (9.4-12.3); Monocytes Absolute Auto 0.3 X10*3/uL (0.1-1.2); Monocytes Percent Auto 5.7 % (2-11); Neutrophils Absolute Auto 3.3 x10*3/uL (2.0-8.3); Neutrophils Percent Auto 60.9 % (45-73); Platelet Count 141 X10*3/uL (160-400); Red Blood Count 3.24 X10*6/uL (4.20-5.50); Red Cell Distribution Width 11.8 % (11.0-16.0); White Blood Count 5.4 X10*3/uL (4.8-10.8)
[2024-03-16 09:52] LABS: Alanine Aminotransferase 36 U/L (0-31); Albumin Level 4.3 g/dL (3.5-5.0); Alkaline Phosphatase 55 U/L (39-117); Anion Gap 10 (12-20); Aspartate Amino Transferase 28 U/L (5-31); Bilirubin Total 0.4 mg/dL (0.0-1.0); Blood Urea Nitrogen 16 mg/dL (9-16); Calcium 9.8 mg/dL (8.4-10.2); Carbon Dioxide 28 mmol/L (22-29); Chloride 109 mmol/L (96-108); Cholesterol 148 mg/dL (<200); Estimated Glomerular Filt Rate > 60; Glucose Fasting 109 mg/dL (60-99); Glucose Random 108 mg/dL (60-115); HDL Cholesterol 34 mg/dL (>40); Iron 70 mcg/dL (30-160); LDL Cholesterol Calculated 57 mg/dL (<100); Percent Iron Saturation 29 % (15-50); Potassium 4.3 mmol/L (3.3-5.1); Sodium 143 mmol/L (135-145); Total Iron Binding Capacity 241 mcg/dL (228-428); Total Protein 6.9 g/dL (6.5-8.0); Triglycerides 285 mg/dL (<150); Unsaturated Iron Binding 171 ug/dL
[2024-03-16 10:07] LABS: Vitamin D 25-OH Total 50.6 ng/mL (>30)
[2024-03-16 10:15] LABS: Folate 14.8 ng/mL (> or = 4.0); Vitamin B12 1170 pg/mL (200-900)
[2024-03-21 15:35] LABS: Vitamin D 25-OH, D2 <4 ng/mL; Vitamin D 25-OH, D3 31 ng/mL; Vitamin D 25-OH, Total 31 ng/mL (30-100)
== END 2024-03-16 08:35 | disposition home or self-care (01) ==
LOC: HO.LAB 08:34
PROVIDERS: PCP Internal Medicine; Visit Provider Student in an Organized Health Care Education/Training Program
DX: M81.0 Age-related osteoporosis without current pathological fracture (principal); D64.9 Anemia, unspecified; I10 Essential (primary) hypertension; E78.5 Hyperlipidemia, unspecified; E53.8 Deficiency of other specified B group vitamins; E55.9 Vitamin D deficiency, unspecified
CPT/HCPCS: 36415; 80048; 80053; 80061; 82306; 82607; 82746; 83540; 85025

== ENCOUNTER 2024-03-18 07:32 | Outpatient (AMB) | payer OTHER, SELFPAY ==
--- NOTE | 2024-03-18 07:35 | A.OFFVIS_ITS ---
Vital Signs 03/18/24 07:43 Height 4 ft 5 in Weight 138 lb 10.732 oz BMI 34.7 BP 120/60 Blood Pressure Location Rt brachial Position Sitting Pulse 66 Pulse Source Pulse Oximeter Pulse Oximetry (%) 97 Oxygen Delivery Method Room Air Intake Visit Reasons: Osteoporosis/CM Intake Note: Patient presents for Osteoporosis. Rad Tech Required: Yes Rad Tech Language: Curtain Supervisor Services: Rad Tech Offered & Declined Rad Tech Name: Raqule Morales Information Interpreted: non-clinical & clinical Accompanied by: [id number] Allergies ENVIRONMENTAL Allergy (Mild, Uncoded 03/10/24 14:25) SWOLLEN EYES FROM POLLEN Medication List - Last Reconciled 03/18/24 by Ofelia Montenegro MD acetaminophen ER (Mapap Arthritis Pain) 1,300 mg (2 x 650 mg) PO Q8H PRN 30 days atorvastatin 20 mg PO BEDTIME 90 days calcium citrate 200 mg PO DAILY 30 days cefuroxime axetil 250 mg PO BID cholecalciferol (vitamin D3) 25 mcg PO DAILY 90 days ciprofloxacin-dexamethasone 0.3-0.1 % 4 drps otic (ear) right Q12H 7 days cyanocobalamin (vitamin B-12) 1,000 mcg sublingual DAILY 90 days lidocaine 5% 1 patch topical DAILY lisinopril 10 mg PO DAILY 90 days sertraline 50 mg PO DAILY 90 days HPI Comments Details: This is an 83-year-old female with osteoporosis who presents for follow-up. Alendronate is not on her list of medications. She states however that she has been taking it regularly every Saturday. Has not noticed any side effects related to it. Has not had any recent falls or fractures. COUNTS INCLUDE 234 BEDS AT THE [facility] Medical History History of left breast cancer Depression Hypovitaminosis D B12 deficiency Essential hypertension Surgical History History of eye surgery History of lumpectomy of left breast History of cholecystectomy History of hysterectomy Family History Father No problems noted. Mother No problems noted. Brother Lung cancer Social History Household Members Other:: Son Housing: Apartment Alcohol intake: never Patient Tobacco Use Status: Never used Tobacco e-Cigarette/Vaping Use: Never Used Second Hand Smoke Exposure: No service: No Current occupational status: unemployed Cognitive needs: Yes (cane, walker ) Hearing needs: No Vision needs: Yes Review of Systems Eyes Reports no additional complaints ENT Reports no additional complaints Physical Exam Vital Signs: Last Vital Signs Pulse 66 03/18/24 07:43 BP 120/60 03/18/24 07:43 Pulse Ox 97 03/18/24 07:43 Oxygen Delivery Method Room Air 03/18/24 07:43 BMI result Body Mass Index 34.7 Const Other: Upper jaw Dentures Lack of teeth bottom jaw General: cooperative, healthy appearing and comfortable Nutritional Appearance: overweight Orientation/consciousness: patient oriented x3 Limitations: no limitations HEENT Head: Yes normocephalic and Yes atraumatic Resp Effort & Inspection: normal respiratory effort and able to speak in complete sentences Auscultation: clear to auscultation bilaterally Cardio Rate: regular rate Rhythm: regular rhythm Skin General skin exam: no rashes or lesions noted Neuro General: patient oriented x3 Extrem Other: Minimal osteoarthritic changes of both hands with no active synovitis Normal gait Assessment & Plan Assessment & Plan (1) Osteoporosis: Comment: DEXA 12/2022, T-score -2.8 left femoral neck Left femur total-2.1 L-spine -1.9 Alendronate 02/2023 Code(s): M81.0 - Age-related osteoporosis without current pathological fracture Category: Medical Qualifiers: Osteoporosis type: age-related Presence of current pathological fracture: without current pathological fracture Qualified Code(s): M81.0 - Age- related osteoporosis without current pathological fracture Plan: This is an 83-year-old female with osteoporosis who presents for follow-up. No falls or fractures since last visit. Remains on alendronate 70 mg weekly. Well-tolerated. Continue alendronate 70 mg weekly. Continue vitamin-D supplementation Plan to repeat DEXA 02/2025 Labs before next visit in 12 months Plan I spent 16 minutes reviewing patient's chart, evaluating patient, ordering diagnostic workup, counseling patient and documenting in the chart Orders: Orders Comprehensive Met. Panel 11 Months M81.0 - Age-related osteoporosis without current pathological fracture XR DEXA axial skeleton 02/17/25 M81.0 - Age-related osteoporosis without current pathological fracture Collagen Type I C-Telopeptide 11 Months M81.0 - Age-related osteoporosis without current pathological fracture Vitamin D 25-OH Total 11 Months E55.9 - Vitamin D deficiency, unspecified Medications: Refilled alendronate take 1 tab once weekly, first thing in the morning on an empty stomach with a large glass of water (at least 6 Oz) and stay upright for 30 minutes 70 mg PO QWEEK 12 tabs 3RF Coding Level of Care Code Est Pt Level 3 (29036) Diagnoses Age-related osteoporosis without current pathological fracture M81.0 Osteoporosis type: age-related Presence of current pathological fracture: without current pathological fracture
[2024-03-18 07:43] VITALS: BP 120/60; PULSE 66; O2SAT 97; BMI 34.7
== END 2024-03-18 08:02 | disposition home or self-care (01) ==
LOC: HO.RHE 07:33
PROVIDERS: PCP Internal Medicine; Visit Provider Student in an Organized Health Care Education/Training Program
DX: M81.0 Age-related osteoporosis without current pathological fracture (principal)
CPT/HCPCS: 99213

== ENCOUNTER → 2024-03-18 07:32 | Outpatient (BNVA) | payer OTHER, SELFPAY | PROVIDERS: PCP Internal Medicine; Visit Provider Student in an Organized Health Care Education/Training Program | DX: M81.0 Age-related osteoporosis without current pathological fracture (principal); E55.9 Vitamin D deficiency, unspecified | CPT/HCPCS: 99212 ==

== ENCOUNTER 2024-05-18 07:25 | Outpatient (AMB) | payer OTHER, SELFPAY ==
[2024-05-18 07:41] VITALS: BP 132/66; BMI 34.3
--- NOTE | 2024-05-18 07:41 | MHC.PC.OV ---
Vital Signs 05/18/24 07:41 Height 4 ft 5 in Weight 137 lb BMI 34.3 BP 132/66 Blood Pressure Location Lt brachial Position Sitting Intake Visit Reasons: 4M follow up Intake Note: Patient here for a 4 month follow up Analytical Data Miner Required: No Accompanied by: Self / Same As Patient Allergies ENVIRONMENTAL Allergy (Mild, Uncoded 05/18/24 08:09) SWOLLEN EYES FROM POLLEN Medication List - Last Reconciled 05/18/24 by Christy Powell MD acetaminophen ER (Mapap Arthritis Pain) 1,300 mg (2 x 650 mg) PO Q8H PRN 30 days alendronate 70 mg PO QWEEK atorvastatin 20 mg PO BEDTIME 90 days calcium citrate 200 mg PO DAILY 30 days cefuroxime axetil 250 mg PO BID cholecalciferol (vitamin D3) 25 mcg PO DAILY 90 days ciprofloxacin-dexamethasone 0.3-0.1 % 4 drps otic (ear) right Q12H 7 days cyanocobalamin (vitamin B-12) 1,000 mcg sublingual DAILY 90 days lidocaine 5% 1 patch topical DAILY lisinopril 10 mg PO DAILY 90 days sertraline 50 mg PO DAILY 90 days Tobacco use date assessed: 01/14/24 Fall risk assessment: No Falls in past year Last assessed Fall Risk: 05/18/24 Dental Screening Dental Screen Date: 02/05/24 HPI HPI Comments History of Present Illness Details The patient is an 83-year-old female presenting with ongoing management of osteoporosis, hypercholesterolemia, hypertension, and mild major depressive disorder with anxiety. Her osteoporosis was diagnosed in December 2022 following a Dexa scan, and she is currently on alendronate 70 mg weekly for treatment. She has hypercholesterolemia for which atorvastatin 20 mg at bedtime is administered. For hypertension, she is on lisinopril 10 mg daily. Her mild major depressive disorder with anxiety is managed with sertraline 50 mg daily. She follows a regimen of calcium with vitamin D and vitamin B12 supplementation. The patient has a known hearing loss and is scheduled for an ENT appointment next month. Recent preventive care includes a normal mammogram conducted in 2023, and plans include a repeat bone Dexa scanning in December 2023. [facility] Medical History History of left breast cancer Depression Hypovitaminosis D B12 deficiency Essential hypertension Surgical History History of eye surgery History of lumpectomy of left breast History of cholecystectomy History of hysterectomy Family History Father No problems noted. Mother No problems noted. Brother Lung cancer Social History Household Members Other:: Son Housing: Apartment Alcohol intake: never Patient Tobacco Use Status: Never used Tobacco e-Cigarette/Vaping Use: Never Used Second Hand Smoke Exposure: No Use of substances other than those prescribed or required for medical reasons: No Have you been hit, kicked, punched, or otherwise hurt by someone within the past year? If so, by whom?: No Do you feel safe in your current relationship?: No Current Relationship Do you have thoughts of harming others: None Do you have a plan to hurt others: No Plan Do you have the means to hurt others: No Recently lost weight without trying: No service: No Current occupational status: unemployed Cognitive needs: Yes (yayn vega ) Hearing needs: No Vision needs: Yes Questionnaire Thrive Questionnaire Date Thrive assessed: 01/14/24 Are you currently unemployed and looking for a job?: No OLIVER-7 AMB Questionnaire OLIVER-7 Date OLIVER - 7 assessed: 01/14/24 Source: Developed by Drs. Sarbjit Hilario, Alisa Collins, Ramana Monterroso and colleagues, with an educational marcelo from [employer]. Review of Systems Const Details: - Auditory: Reports hearing loss. Physical exam (Primary Care) Vital Signs: Last Vital Signs BP 132/66 05/18/24 07:41 BMI result Body Mass Index 34.3 BMI Assessment/Plan discussion: High BMI High, discussed plan: lifestyle, weight reduction, dietary and physical activity Tobacco/Smoking Status: Tobacco use Status Tobacco use date assessed 01/14/24 05/18/24 07:46 Patient Tobacco Use Status Never used Tobacco 05/18/24 07:46 Tobacco use type 02/06/24 15:23 e-Cigarette/Vaping Use Never Used 05/18/24 07:46 Thrive Assessment: Date of Thrive Assessment Date Thrive assessed 01/14/24 05/18/24 07:46 Const Other: General: No confusion Ears: External ears normal, but patient has hearing loss Respiratory: Normal respiratory effort, clear to auscultation bilaterally Cardiovascular: No jugular venous distension, regular rate, regular rhythm, S1 normal heart sound present and S2 normal heart sound present Extremities: Full ROM Psychology: Grossly normal Coding Level of Care Code Est Pt Level 4 (64099) Complex EM visit Add On G2211 Diagnoses Hearing loss of left ear, unspecified hearing loss type H91.92 Hearing loss type: unspecified Age-related osteoporosis without current pathological fracture M81.0 Osteoporosis type: age-related Presence of current pathological fracture: without current pathological fracture Mild major depression F32.0 Pure hypercholesterolemia E78.00 Essential hypertension I10 Time Spent (min) 24 Assessment & Plan Assessment & Plan (1) Hearing loss, left: Code(s): H91.92 - Unspecified hearing loss, left ear Category: Medical Qualifiers: Hearing loss type: unspecified Qualified Code(s): H91.92 - Unspecified hearing loss, left ear (2) Osteoporosis: Comment: DEXA 12/2022, T-score -2.8 left femoral neck Left femur total-2.1 L-spine -1.9 Alendronate 02/2023 Code(s): M81.0 - Age-related osteoporosis without current pathological fracture Category: Medical Qualifiers: Osteoporosis type: age-related Presence of current pathological fracture: without current pathological fracture Qualified Code(s): M81.0 - Age-related osteoporosis without current pathological fracture (3) Mild major depression: Code(s): F32.0 - Major depressive disorder, single episode, mild Category: Medical (4) Pure hypercholesterolemia: Code(s): E78.00 - Pure hypercholesterolemia, unspecified Category: Medical (5) Essential hypertension: Code(s): I10 - Essential (primary) hypertension Category: Medical Plan 1. - Continue current medication regimen for osteoporosis, hypercholesterolemia, and hypertension: - Monitor and manage mild major depressive disorder with anxiety. - Scheduled ENT appointment to address hearing loss. - Reinforce the importance of calcium and vitamin D supplementation. Patient was informed and verbally consented to the use of an ambient scribe for clinic note documentation during this visit. I reiterated the importance of adherence to the prescribed medication regimen and dietary supplements to manage her osteoporosis, hypercholesterolemia, hypertension, and mental health. We discussed the upcoming ENT consultation for her hearing loss and emphasized the necessity of follow-up appointments to monitor her bone density and overall health status. The patient expressed understanding and agreement with the current management plan and future diagnostic evaluations. Orders: Orders Lipid Panel Today E78.5 - Hyperlipidemia, unspecified Vitamin D 25-OH Total Today E55.9 - Vitamin D deficiency, unspecified Complete Blood Count Auto Diff Today D50.9 - Iron deficiency anemia, unspecified, D64.9 - Anemia, unspecified Comprehensive [place]. Panel Fast Today E78.00 - Pure hypercholesterolemia, unspecified Patient Instructions: - Take medications as prescribed for osteoporosis, cholesterol, blood pressure, and anxiety. - Attend the scheduled ENT appointment next month. - Continue calcium and vitamin D supplements as directed. - Return for a follow-up visit after the scheduled bone Dexa scan in December 2023. - Report any new symptoms or concerns immediately.
== END 2024-05-18 08:16 | disposition home or self-care (01) ==
PROVIDERS: PCP Internal Medicine; Visit Provider Internal Medicine
DX: H91.92 Unspecified hearing loss, left ear (principal); M81.0 Age-related osteoporosis without current pathological fracture; F32.0 Major depressive disorder, single episode, mild; E78.00 Pure hypercholesterolemia, unspecified; I10 Essential (primary) hypertension

== ENCOUNTER → 2024-05-18 07:25 | Outpatient (BNVA) | payer OTHER, SELFPAY | PROVIDERS: PCP Internal Medicine; Visit Provider Internal Medicine | DX: H91.92 Unspecified hearing loss, left ear (principal); M81.0 Age-related osteoporosis without current pathological fracture; F32.0 Major depressive disorder, single episode, mild; E78.00 Pure hypercholesterolemia, unspecified; I10 Essential (primary) hypertension | CPT/HCPCS: 99212 ==

== ENCOUNTER 2024-07-21 14:46 | Outpatient (REF) | payer OTHER, SELFPAY ==
--- OUTSIDE RECORDS SUMMARY | 2024-07-21 18:43 | XMS_ITS | Clinical Summary ---
Author Organization [employer] Address [address] [place] [address] Care Team Providers Care Development Associate Name Role Phone Unavailable Primary Care Provider Unavailabl e Immunizations Name Administration Dates Next Due Influenza High-dose Quadriva lent Preservative Free 03/26/2023 Influenza Quadrivalent Adjuvanted 04/17/2021 Influenza, High Dose Seasona l, Preservative Free 02/20/2024,02/24/2019,02/10/2018,03/04 Influenza, seasonal, injecta ble, preservative free 03/15/2016 Moderna Covid-19 Vaccine 12+ 07/20/2020,06/22/19 21 Pfizer Covid-19 Vaccine 12+ 04/01/2024 Pneumococcal Conjugate PCV 13 02/21/2018 Pneumococcal Polysaccharide PPSV23 03/15/2016, TD (adult), 2 Lf tetanus tox oid, preservative free, adsorbed 10/07/2008 Social History Tobacco Use Types Packs/Day Years Used Date Smoking Tobacco: Never Assessed Comments Unknown Sex and Gender Information Value Date Recorded Sex Assigned at Female 03/19/2022 10:16 AM EDT Legal Sex Female 10:16 AM EDT Gender Identity Choose not to disclose 10:27 AM EST Sexual Orientation Choose not to disclose 2022 10:28 AM EST Plan of Treatment Health Maintenance Due Date Last Done Comments Depression Screening 1940 SDOH Screening 1940 Alcohol/Substance Use Screening 1951 Tobacco Screening 1952 Zoster Vaccines (1 of 2) 10/14/1989 DTaP/Tdap/Td Vaccines (1 - Tdap) 10/08/2008 10/07/2008 RSV Patients and Patients Aged 60 years or older (1 - 1-dose 75+ series) 10/14/2014 Pneumococcal Vaccine: 50+ Years Completed 02/21/2018, 03/15/2016, 10/07/2008 Influenza Vaccine Completed 02/20/2024, , 04/17/2021, Additional history exists COVID-19 Vaccine Completed 04/01/2024, 07/2020, 06/22/2020 HIB Vaccines Aged Out No longer eligi ble based on patient's age to complete this topic HPV Vaccines Aged Out No longer eligi ble based on patient's age to complete this topic Hepatitis A Vaccines Aged Out No long er eligible based on patient's age to complete this topic Hepatitis B Vaccines Aged Out No long er eligible based on patient's age to complete this topic IPV Vaccines Aged Out No longer eligi ble based on patient's age to complete this topic Meningococcal Vaccine Aged Out No carlos aldo eligible based on patient's age to complete this topic RSV under 20 months Aged Out No longe r eligible based on patient's age to complete this topic Rotavirus Vaccines Aged Out No longer eligible based on patient's age to complete this topic Insurance [facility] STANDARD [facility]
== END 2024-07-21 14:47 | disposition home or self-care (01) ==
LOC: HO.MAMMO 14:46
PROVIDERS: PCP Internal Medicine; Visit Provider Internal Medicine
DX: Z12.31 Encounter for screening mammogram for malignant neoplasm of breast (principal)
CPT/HCPCS: 77063; 77067

== ENCOUNTER → 2024-07-21 15:15 | Outpatient (BNV) | payer OTHER, SELFPAY | PROVIDERS: PCP Internal Medicine; Visit Provider Internal Medicine | DX: Z12.31 Encounter for screening mammogram for malignant neoplasm of breast (principal) | CPT/HCPCS: 77063; 77067 ==

== ENCOUNTER 2024-09-10 13:47 | Outpatient (AMB) | payer OTHER, SELFPAY ==
[2024-09-10 13:58] VITALS: BP 136/70; BMI 32.5
--- NOTE | 2024-09-10 13:58 | A.OFFPC_ITS ---
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 Allergies ENVIRONMENTAL Allergy (Mild, Uncoded 09/10/24 14:08) SWOLLEN EYES FROM POLLEN Medication List - Last Reconciled 09/10/24 by Christy Powell MD acetaminophen ER (Mapap Arthritis Pain) 1,300 mg (2 x 650 mg) PO Q8H PRN 30 days alendronate 70 mg PO QWEEK atorvastatin 20 mg PO BEDTIME 90 days calcium citrate 200 mg PO DAILY 30 days cholecalciferol (vitamin D3) 25 mcg PO DAILY 90 days cyanocobalamin (vitamin B-12) 1,000 mcg sublingual DAILY 90 days lidocaine 5% 1 patch topical DAILY lisinopril 10 mg PO DAILY 90 days sertraline 50 mg PO DAILY 90 days Tobacco use date assessed: 09/10/24 Fall risk assessment: No Falls in past year Last assessed Fall Risk: 09/10/24 Dental Screening Dental Screen Date: 09/10/24 Did you have a dental visit in the last 12 months?: No Did you have a dental problem in the last 6 months where you did not have access to dental care?: No Was dental information given to patient?: Patient has dentist HPI HPI Comments History of Present Illness Details The patient is an 83-year-old female presenting with chronic conditions requiring management and evaluation. She is on medication for osteoporosis incl uding alendronate, along with calcium, vitamin D, and B12 supplements. Additionally, she is on atorvastatin and lisinopril for cardiovascular health, and sertraline for depression with anxiety. Recent lab results from April indicate mild anemia, although renal and glycemic functions are stable, and there was a minor elevation in liver enzyme levels. The patient recently managed an ear infection with prior-prescribed ear drops. Due to a prior appointment scheduled for the 14 of January coinciding with travel plans, she is arranging to have necessary lab tests conducted before her trip. [facility] Medical History History of left breast cancer Depression Hypovitaminosis D B12 deficiency Essential hypertension Surgical History History of eye surgery History of lumpectomy of left breast History of cholecystectomy History of hysterectomy Family History Father No problems noted. Mother No problems noted. Brother Lung cancer Social History Household Members Other:: Son Housing: Apartment Alcohol intake: never Patient Tobacco Use Status: Never used Tobacco e-Cigarette/Vaping Use: Never Used Second Hand Smoke Exposure: No service: No Current occupational status: unemployed Cognitive needs: Yes (cane, walker ) Hearing needs: No Vision needs: Yes Questionnaire PHQ-9 Over the last 2 weeks, how often have you been bothered by any of the following problems? 1. Little interest or pleasure in doing things: not at all 2. Feeling down, depressed, or hopeless: not at all 3. Trouble falling or staying asleep, or sleeping too much: not at all 4. Feeling tired or having little energy: not at all 5. Poor appetite or overeating: not at all 6. Feeling bad about yourself - or that you are a failure or have let yourself or your family down: not at all 7. Trouble concentrating on things, such as reading the newspaper or watching television: not at all 8. Moving or speaking so slowly that other people could have noticed. Or the opposite - being so fidgety or restless that you have been moving around a lot more than usual: not at all 9. Thoughts that you would be better off or of hurting yourself in some way: not at all Total score: 0 Depression Screening Interpretation: Negative Depression Screening Done: Yes 33282 - PHQ-9 Billing: Yes Source: Developed by Drs. Sarbjit Hilario, Alisa Collins, Ramana Monterroso and colleagues, with an educational marcelo from [employer]. Thrive Questionnaire Date Thrive assessed: 09/10/24 I am a: Patient What is your living situation today?: I have a steady place to live Within the past 12 months, did the food you bought not last and you didn't have the money to get more?: Never true Within the past 12 months, did you worry whether your food would run out before you got money to buy more?: Never true Do you have trouble paying for medicines?: No Do you have trouble getting transportation to medical appointments?: No Do you have trouble paying your heating and electricity bill?: No Do you have trouble taking care of your child, family member or friend?: No Do you have trouble with day-to-day activities such as bathing, preparing meals, shopping, managing finances, etc.?: Yes Are you currently unemployed and looking for a job?: No Are you interested in more education?: No Please select the resources that you would like help with: None Currently or been in a relationship where the following occur: No concerns reported THRIVE Score: 0 AUDIT C Alcohol Use Questionnaire (AUDIT-C) 1. How often do you have a drink containing alcohol?: Never Total Score: 0 Score Reviewed/Action Taken: No OLIVER-7 AMB Questionnaire OLIVER-7 Date OLIVER - 7 assessed: 09/10/24 Feeling nervous, anxious, or on edge: 0 = Not at all Not being able to stop or control worryin = Not at all Worrying too much about different things: 0 = Not at all Trouble relaxin = Not at all Being so restless that it is hard to sit still: 0 = Not at all Becoming easily annoyed or irritable: 0 = Not at all Feeling afraid as if something awful might happen: 0 = Not at all Total OLIVER-7 score (0-4 normal; 5-9 mild; 10-14 moderate; 15-21 severe): 0 Source: Developed by Drs. Sarbjit Hilario, Alisa Collins, Ramana Monterroso and colleagues, with an educational marcelo from [employer]. OLIVER-7 Assessment Billing OLIVER-7 Assessment Tool: OLIVER-7 Assessment 63899 Review of Systems Const All systems reviewed & are unremarkable except as noted in HPI and below Card Denies chest pain at rest, Denies chest pain with activity, Denies edema, Denies irregular heart rhythm, Denies claudication, Denies dyspnea, Denies dyspnea on exertion, Denies orthopnea, Denies paroxysmal nocturnal dyspnea and Denies slow heart rate Resp Denies cough, Denies dyspnea and Denies dyspnea on exertion GI Denies abdominal pain, Denies change in bowel habits, Denies excessive flatus, Denies nausea and Denies vomiting Physical exam (Primary Care) Vital Signs: Last Vital Signs BP 136/70 09/10/24 13:58 BMI result Body Mass Index 32.5 BMI Assessment/Plan discussion: High BMI High, discussed plan: lifestyle, weight reduction, dietary and physical activity Tobacco/Smoking Status: Tobacco use Status Tobacco use date assessed 09/10/24 09/10/24 14:05 Patient Tobacco Use Status Never used Tobacco 09/10/24 14:05 Tobacco use type 02/06/24 15:23 e-Cigarette/Vaping Use Never Used 09/10/24 14:05 PHQ-9: PHQ-9 Score PHQ-9: Total score 0 09/10/24 14:05 Depression Screening Interpretation: Negative Thrive Assessment: Date of Thrive Assessment Date Thrive assessed 09/10/24 09/10/24 14:05 Currently or been in a relationship where the following occur: No concerns reported Resp Effort & Inspection: normal respiratory effort Auscultation: clear to auscultation bilaterally Cardio Jugular venous distension: no JVD Rate: regular rate Rhythm: regular rhythm Heart sounds: S1 normal heart sound present and S2 normal heart sound present Neuro General: no focal motor deficits Extrem General: Yes full ROM Coding Level of Care Code Est Pt Level 4 (59620) Complex EM visit Add On G2211 Diagnoses Age-related osteoporosis without current pathological fracture M81.0 Osteoporosis type: age-related Presence of current pathological fracture: without current pathological fracture Iron (Fe) deficiency anemia D50.9 Mild major depression F32.0 Pure hypercholesterolemia E78.00 Essential hypertension I10 Additional Codes PHQ-9 - 35655 - PHQ-9 Billing: Yes ([id number]) OLIVER-7 Assessment Billing - OLIVER-7 Assessment Tool: OLIVER-7 Assessment 04711 ([id number]) Time Spent (min) 23 Assessment & Plan Assessment & Plan (1) Osteoporosis: Comment: DEXA 12/2022, T-score -2.8 left femoral neck Left femur total-2.1 L-spine -1.9 Alendronate 02/2023 Code(s): M81.0 - Age-related osteoporosis without current pathological fracture Category: Medical Qualifiers: Osteoporosis type: age-related Presence of current pathological fracture: without current pathological fracture Qualified Code(s): M81.0 - Age- related osteoporosis without current pathological fracture (2) Iron (Fe) deficiency anemia: Code(s): D50.9 - Iron deficiency anemia, unspecified Category: Medical (3) Mild major depression: Code(s): F32.0 - Major depressive disorder, single episode, mild Category: Medical (4) Pure hypercholesterolemia: Code(s): E78.00 - Pure hypercholesterolemia, unspecified Category: Medical (5) Essential hypertension: Code(s): I10 - Essential (primary) hypertension Category: Medical Plan We reviewed the ongoing treatment for the patient's chronic conditions, which include osteoporosis, hypertension, depression with anxiety, environmental allergies, ear infection follow-up, anemia management, and monitoring of liver enzymes. Her current medications will be maintained, and I emphasized adherence to sertraline. Upcoming labs will be scheduled to ensure continuation of stable health status. An February densitometry is planned for osteoporosis management, and appointment adjustments will accommodate her travel plans in late December. Patient was informed and verbally consented to the use of an ambient scribe for clinic note documentation during this visit. I discussed the patient's ongoing management for osteoporosis, ensuring adherence to the medication regimen of alendronate. I explained the significance of her current laboratory results, particularly the anemia and minor liver enzyme elevation, and the need for regular testing to monitor these conditions. We reviewed her medication list, confirming her understanding and commitment to the treatment plan. We agreed on future lab work scheduled before her trip, considering her travel plans. I informed her about the need for a bone density scan in February, and we agreed on rescheduling her appointment to accommodate her upcoming trip. Orders: Orders Complete Blood Count Auto Diff 4 Months D64.9 - Anemia, unspecified IRON PROFILE 4 Months D64.9 - Anemia, unspecified Comprehensive [place]. Panel Fast 4 Months E78.00 - Pure hypercholesterolemia, unspecified XR DEXA axial skeleton 6 Months Z78.0 - Asymptomatic menopausal state Vitamin B12 and Folate 4 Months E53.8 - Deficiency of other specified B group vitamins Vitamin D 25-OH Total 4 Months E55.9 - Vitamin D deficiency, unspecified Lipid Panel 4 Months E78.5 - Hyperlipidemia, unspecified Patient Instructions: - Continue taking all prescribed medications as directed. - Schedule laboratory tests for early December before the trip. - Arrange a bone densitometry appointment for February. - Reschedule the January 14 appointment to avoid conflict with travel. - Monitor any new symptoms and report them promptly. - Follow-up appointments as scheduled.
--- OUTSIDE RECORDS SUMMARY | 2024-09-10 16:10 | XMS_ITS | Clinical Summary ---
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
== END 2024-09-10 14:19 | disposition home or self-care (01) ==
LOC: HO.HMCH 13:47
PROVIDERS: PCP Internal Medicine; Visit Provider Internal Medicine
DX: M81.0 Age-related osteoporosis without current pathological fracture (principal); D50.9 Iron deficiency anemia, unspecified; F32.0 Major depressive disorder, single episode, mild; E78.00 Pure hypercholesterolemia, unspecified; I10 Essential (primary) hypertension

== ENCOUNTER → 2024-09-10 13:47 | Outpatient (BNVA) | payer OTHER, SELFPAY | PROVIDERS: PCP Internal Medicine; Visit Provider Internal Medicine | DX: M81.0 Age-related osteoporosis without current pathological fracture (principal); F41.8 Other specified anxiety disorders; D50.9 Iron deficiency anemia, unspecified; F32.0 Major depressive disorder, single episode, mild; E78.00 Pure hypercholesterolemia, unspecified; I10 Essential (primary) hypertension; E53.8 Deficiency of other specified B group vitamins; E55.9 Vitamin D deficiency, unspecified; Z78.0 Asymptomatic menopausal state | CPT/HCPCS: 96127; 99212 ==

== ENCOUNTER 2025-01-27 08:41 | Outpatient (AMB) | payer OTHER, SELFPAY ==
--- NOTE | 2025-01-27 08:50 | A.OFFPC_ITS ---
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 Accompanied by: Self / Same As Patient Allergies Seasonal Allergies Allergy (Mild, Verified 01/27/25 09:34) swallowen ENVIRONMENTAL Allergy (Mild, Uncoded 01/27/25 09:34) SWOLLEN EYES FROM POLLEN Medication List - Last Reconciled 01/27/25 by Christy Powell MD acetaminophen ER (Mapap Arthritis Pain) 1,300 mg (2 x 650 mg) PO Q8H PRN 30 days alendronate 70 mg PO QWEEK atorvastatin 20 mg PO BEDTIME 90 days calcium citrate 200 mg PO DAILY 30 days cholecalciferol (vitamin D3) 25 mcg PO DAILY 90 days cyanocobalamin (vitamin B-12) 1,000 mcg sublingual DAILY 90 days lidocaine 5% 1 patch topical DAILY lisinopril 10 mg PO DAILY 90 days sertraline 50 mg PO DAILY 90 days Tobacco use date assessed: 01/27/25 Fall risk assessment: No Falls in past year Last assessed Fall Risk: 01/27/25 Dental Screening Dental Screen Date: 01/27/25 Did you have a dental visit in the last 12 months?: No Did you have a dental problem in the last 6 months where you did not have access to dental care?: No Was dental information given to patient?: No HPI HPI Comments History of Present Illness Details The patient is an 84-year-old female presenting with an annual physical examination. The patient has a history of hearing loss, for which she has been referred to an ear, nose, and throat specialist for further evaluation and management, including the need for hearing aids. She has osteoporosis and is currently taking alendronate 70 mg once weekly. Her last bone density scan was in 2022, and she is due for another scan as part of her routine management. The patient is on atorvastatin 20 mg for hyperlipidemia and lisinopril 10 mg for hypertension, both of which are part of her ongoing management plan. She also takes sertraline 50 mg for depression with anxiety, which is part of her mental health management. The patient reports seasonal allergies, managed with [id number] medications as needed. Her surgical history includes a lumpectomy in 2016, cholecystectomy, hysterectomy, and eye surgery. Family history reveals her father lived to 102 years and her mother at 84 years. She has never smoked or consumed alcohol. - Bone density scan last performed in , due for repeat. - Tetanus and pneumonia vaccinations adm inistered. [facility] Medical History History of left breast cancer Depression Hypovitaminosis D B12 deficiency Essential hypertension Surgical History History of eye surgery History of lumpectomy of left breast History of cholecystectomy History of hysterectomy Family History Father No problems noted. Mother No problems noted. Brother Lung cancer Social History Household Members Other:: Son Housing: Apartment Alcohol intake: never Patient Tobacco Use Status: Never used Tobacco e-Cigarette/Vaping Use: Never Used Second Hand Smoke Exposure: No service: No Current occupational status: unemployed Cognitive needs: Yes (cannelly, walker ) Hearing needs: No Vision needs: Yes Questionnaire PHQ-9 Over the last 2 weeks, how often have you been bothered by any of the following problems? 1. Little interest or pleasure in doing things: not at all 2. Feeling down, depressed, or hopeless: not at all 3. Trouble falling or staying asleep, or sleeping too much: not at all 4. Feeling tired or having little energy: not at all 5. Poor appetite or overeating: not at all 6. Feeling bad about yourself - or that you are a failure or have let yourself or your family down: not at all 7. Trouble concentrating on things, such as reading the newspaper or watching television: not at all 8. Moving or speaking so slowly that other people could have noticed. Or the opposite - being so fidgety or restless that you have been moving around a lot more than usual: not at all 9. Thoughts that you would be better off or of hurting yourself in some way: not at all Total score: 0 Depression Screening Interpretation: Negative Depression Screening Done: Yes 19955 - PHQ-9 Billing: Yes Source: Developed by Drs. Sarbjit Hilario, Alisa Collins, Ramana Monterroso and colleagues, with an educational marcelo from [employer]. Thrive Questionnaire Date Thrive assessed: 01/27/25 I am a: Patient What is your living situation today?: I have a steady place to live Within the past 12 months, did the food you bought not last and you didn't have the money to get more?: Never true Within the past 12 months, did you worry whether your food would run out before you got money to buy more?: Never true Do you have trouble paying for medicines?: No Do you have trouble getting transportation to medical appointments?: No Do you have trouble paying your heating and electricity bill?: No Do you have trouble taking care of your child, family member or friend?: No Do you have trouble with day-to-day activities such as bathing, preparing meals, shopping, managing finances, etc.?: Yes Are you currently unemployed and looking for a job?: No Are you interested in more education?: No Please select the resources that you would like help with: None Currently or been in a relationship where the following occur: No concerns reported THRIVE Score: 0 AUDIT C Alcohol Use Questionnaire (AUDIT-C) 1. How often do you have a drink containing alcohol?: Never Total Score: 0 Score Reviewed/Action Taken: No OLIVER-7 AMB Questionnaire OLIVER-7 Date OLIVER - 7 assessed: 01/27/25 Feeling nervous, anxious, or on edge: 0 = Not at all Not being able to stop or control worryin = Not at all Worrying too much about different things: 0 = Not at all Trouble relaxin = Not at all Being so restless that it is hard to sit still: 0 = Not at all Becoming easily annoyed or irritable: 0 = Not at all Feeling afraid as if something awful might happen: 0 = Not at all Total OLIVER-7 score (0-4 normal; 5-9 mild; 10-14 moderate; 15-21 severe): 0 Source: Developed by Alisa Weems Kurt Kroenke and colleagues, with an educational marcelo from [employer]. OLIVER-7 Assessment Billing OLIVER-7 Assessment Tool: OLIVER-7 Assessment 24569 Review of Systems Const All systems reviewed & are unremarkable except as noted in HPI and below Card Denies chest pain at rest, Denies chest pain with activity, Denies edema, Denies irregular heart rhythm, Denies claudication, Denies dyspnea, Denies dyspnea on exertion, Denies orthopnea, Denies paroxysmal nocturnal dyspnea and Denies slow heart rate Resp Denies cough, Denies dyspnea and Denies dyspnea on exertion GI Denies abdominal pain, Denies change in bowel habits, Denies excessive flatus, Denies nausea and Denies vomiting Physical exam (Primary Care) Vital Signs: Last Vital Signs Pulse 73 01/27/25 08:53 BP 130/66 01/27/25 08:53 Pulse Ox 96 01/27/25 08:53 Oxygen Delivery Method Room Air 01/27/25 08:53 BMI result Body Mass Index 32.3 Tobacco/Smoking Status: Tobacco use Status Tobacco use date assessed 01/27/25 01/27/25 08:54 Patient Tobacco Use Status Never used Tobacco 01/27/25 08:54 Tobacco use type 02/06/24 15:23 e-Cigarette/Vaping Use Never Used 01/27/25 08:54 PHQ-9: PHQ-9 Score PHQ-9: Total score 0 01/27/25 10:05 Depression Screening Interpretation: Negative Thrive Assessment: Date of Thrive Assessment Date Thrive assessed 01/27/25 01/27/25 08:54 Currently or been in a relationship where the following occur: No concerns reported [facility] Head: Yes normal to inspection, Yes normocephalic and Yes atraumatic Ears: external ears normal Eyes General: appearance normal, both eyes and all related structures Eyelids: Yes eyelids normal Conjunctivae: conjunctivae normal Neck Neck: Yes normal visual inspection and Yes supple Resp Effort & Inspection: normal respiratory effort Auscultation: clear to auscultation bilaterally Cardio Jugular venous distension: no JVD Rate: regular rate Rhythm: regular rhythm Heart sounds: S1 normal heart sound present and S2 normal heart sound present GI Inspection: Yes normal to inspection Palpation (GI): Soft to palpation and nontender Auscultation: normal bowel sounds Skin General skin exam: no rashes or lesions noted Neuro General: no focal motor deficits Extrem General: Yes full ROM Psych Appearance: grossly normal Immunizations pneumoc 20-rosie conj-dip cr(PF) 0.5 mL IM syringe Performing Provider: Christy Powell MD Performing Location: [facility] Administered by: Ashley Britton RN on 01/27/25 10:03 Dose Route Admin Location Dispensed Lot Number Expiration Date ND 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 0.5 mL IM Left Deltoid 0.5 mL [id number] 02/16/26 5280-8646-48 [employer] Total Dispensed Waste 0.5 mL 0 % VIS Given Date VIS Provided VIS Publication Date 01/27/25 Single Vaccine 24 Eligibility Eligibility Date Funding Source Not VFC Eligible 01/27/25 Private Boostrix Tdap 2.5 Lf unit-8 mcg-5 Lf/0.5 mL intramuscular syringe Performing Provider: Christy Powell MD Performing Location: [facility] Administered by: Ashley Britton RN on 01/27/25 10:05 Dose Route Admin Location Dispensed Lot Number Expiration Date [place] 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 0.5 mL IM Right Deltoid 0.5 mL [id number] 04/08/27 [id number] [employer] Total Dispensed Waste 0.5 mL 0 % VIS Given Date VIS Provided VIS Publication Date 01/27/25 Single Vaccine 20 Eligibility Eligibility Date Funding Source Not VFC Eligible 01/27/25 Private Coding Level of Care Code Est Pt Prev Care >65y(55190) Diagnoses Physical exam Z00.00 Mild major depression F32.0 Additional Codes OLIVER-7 Assessment Billing - OLIVER-7 Assessment Tool: OLIVER-7 Assessment 42879 ([id number]) PHQ-9 - 22130 - PHQ-9 Billing: Yes ([id number]) Time Spent (min) 31 Assessment & Plan Assessment & Plan (1) Physical exam: Code(s): Z00.00 - Encounter for general adult medical examination without abnormal findings Category: Medical (2) Mild major depression: Code(s): F32.0 - Major depressive disorder, single episode, mild Category: Medical Plan Plan Patient was informed and verbally consented to the use of an ambient scribe for clinic note documentation during this visit. 1. Encounter for general adult medical examination without abnormal findings Z00.00 The patient received tetanus and pneumonia vaccinations as part of preventive. Orders: Orders Lipid Panel Today E78.5 - Hyperlipidemia, unspecified Comprehensive Ary. Panel Fast Today Z00.00 - Encounter for general adult medical examination without abnormal findings Vitamin B12 and Folate Today E53.8 - Deficiency of other specified B group vitamins Vitamin D 25-OH Total Today E55.9 - Vitamin D deficiency, unspecified XR DEXA axial skeleton Today Z78.0 - Asymptomatic menopausal state Pneumococcal 20 Immunization Today Z23 - Encounter for immunization TDaP Immunization Today Z23 - Encounter for immunization Complete Blood Count Auto Diff Today D64.9 - Anemia, unspecified IRON PROFILE Today D64.9 - Anemia, unspecified
[2025-01-27 08:53] VITALS: BP 130/66; PULSE 73; O2SAT 96; BMI 32.3
--- OUTSIDE RECORDS SUMMARY | 2025-01-27 10:09 | XMS_ITS | Clinical Summary ---
Author Organization [employer] Address [address] [place] [address] Care Team Providers Care Crop Duster Helper Name Role Phone Unavailable Primary Care Provider Unavailabl e Immunizations Immunization Administration Dates Next Due Influenza High-dose Quadriva [...] older (1 - 1-dose 75+ series) 10/14/2014 COVID-19 Vaccine ( season) 2025 04/01/2024, 07/20/2020, 06/22/2020 Influenza Vaccine (#1) 2025 , 03/26/2023, 04/17/2021, Additional history exists Pneumococcal Vaccine: 50+ Years Completed 02/21/2018, 03/15/2016, 10/07/2008 HIB Vaccines Aged Out No longer eligi [...] patient's age to complete this topic Meningococcal B Vaccine Aged Out No l onger eligible based on patient's age to complete this topic Meningococcal Vaccine Aged Out No carlos aldo eligible based on patient's age to complete this topic RSV under 20 months Aged Out No longe r eligible based on patient's age to complete this topic Rotavirus Vaccines Aged Out No longer eligible based on patient's age to complete this topic Insurance [facility] CORRECTION OPTIONS (HMO D-SNP)
== END 2025-01-27 10:39 | disposition home or self-care (01) ==
LOC: HO.HMCH 08:42
PROVIDERS: PCP Internal Medicine; Visit Provider Internal Medicine
DX: Z00.00 Encounter for general adult medical examination without abnormal findings (principal); F32.0 Major depressive disorder, single episode, mild; Z23 Encounter for immunization

== ENCOUNTER → 2025-01-27 08:41 | Outpatient (BNVA) | payer OTHER, SELFPAY | PROVIDERS: PCP Internal Medicine; Visit Provider Internal Medicine | DX: Z00.00 Encounter for general adult medical examination without abnormal findings (principal); M81.0 Age-related osteoporosis without current pathological fracture; E78.5 Hyperlipidemia, unspecified; F41.9 Anxiety disorder, unspecified; J30.2 Other seasonal allergic rhinitis; E53.8 Deficiency of other specified B group vitamins; E55.9 Vitamin D deficiency, unspecified; D64.9 Anemia, unspecified; Z23 Encounter for immunization; Z78.0 Asymptomatic menopausal state; Z79.899 Other long term (current) drug therapy | CPT/HCPCS: 90471; 90472; 90677; 90715; 96127; 99397 ==

== ENCOUNTER 2025-03-10 07:45 | Outpatient (REF) | payer OTHER, SELFPAY ==
--- NOTE | ~2025-03-10 | MM_ITS ---
EXAMINATION: DXA BONE DENSITY AXIAL HISTORY: Z78.0 - Asymptomatic menopausal state TECHNIQUE: [employer] NET Dual energy absorptiometry (DEXA) of the lumbar spine, total left hip, and femoral neck was performed. COMPARISON: Comparison is made with the prior examination dated 12/20/2022. FINDINGS: The bone mineral density of the lumbar spine is 0.865 g/cm2, corresponding to a T-score of -2.5, and a Z-score of -0.5. This is indicative of osteoporosis. This represents a BMD change of 2.0% compared to the prior exam. This is not statistically significant. The bone mineral density of the left total hip is 0.786 g/cm2, corresponding to a T-score of -1.8, and a Z-score of 0.6. This is indicative of osteopenia. This represents a BMD change of 1.8% compared to the prior exam. This is not statistically significant. The bone mineral density of the left femoral neck is 0.659 g/cm2, corresponding to a T-score of -2.7, and a Z-score of -0.3. This is indicative of osteoporosis. This represents a BMD change of 0.6% compared to the prior exam. MM/XR DEXA axial skeleton IMPRESSION: Based on bone mineral density, and according to World Health Organization (WHO) criteria, the diagnosis is consistent with osteoporosis. Statistically, 68% of repeat scans fall within 1 SD (+/- 0.010 g/cm2 for AP spine L1-L4) and 1 SD (+/- 0.012 g/cm2 for femur total) FRAX is a trademark of the [employer]'s [place] for Metabolic Bone Disease, a World Health Organization (WHO) Collaborating Center. Electronically signed by: Sarbjit Cortes MD 03/10/2025 08:37 AM EDT
--- OUTSIDE RECORDS SUMMARY | 2025-03-10 07:48 | XMS_ITS | Clinical Summary ---
Author Organization [employer] Address [address] [place] [address] Care Team Providers Care Small Animal Veterinarian Name Role Phone Unavailable Primary Care Provider [...] patient's age to complete this topic Insurance [facility] GROUP HOME OPTIONS (HMO D-SNP)
== END 2025-03-10 07:46 | disposition home or self-care (01) ==
LOC: HO.MAMMO 07:45
PROVIDERS: PCP Internal Medicine; Referring Provider Student in an Organized Health Care Education/Training Program; Visit Provider Internal Medicine
DX: M81.0 Age-related osteoporosis without current pathological fracture (principal); Z78.0 Asymptomatic menopausal state
CPT/HCPCS: 77080

== ENCOUNTER → 2025-03-10 08:15 | Outpatient (BNV) | payer OTHER, SELFPAY | PROVIDERS: PCP Internal Medicine; Referring Provider Student in an Organized Health Care Education/Training Program; Visit Provider Radiology Diagnostic Radiology | DX: E28.39 Other primary ovarian failure (principal) | CPT/HCPCS: 77080 ==

== ENCOUNTER 2025-03-12 13:58 | Outpatient (REF) | payer OTHER, SELFPAY ==
--- OUTSIDE RECORDS SUMMARY | 2025-03-12 16:04 | XMS_ITS | Clinical Summary ---
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
== END 2025-03-12 13:59 | disposition home or self-care (01) ==
LOC: HO.LAB 13:58
PROVIDERS: PCP Internal Medicine; Visit Provider Student in an Organized Health Care Education/Training Program
DX: Z13.89 Encounter for screening for other disorder (principal)

== ENCOUNTER 2025-03-15 07:26 | Outpatient (REF) | payer OTHER, SELFPAY ==
--- OUTSIDE RECORDS SUMMARY | 2025-03-15 07:29 | XMS_ITS | Clinical Summary ---
Author Organization [employer] Address [address] [place] [address] Care Team Providers Care Slot Machine Key Person Name Role Phone Unavailable Primary Care Provider [...] patient's age to complete this topic Insurance [facility] FDC OPTIONS (HMO D-SNP)
[2025-03-15 08:09] LABS: MANUAL DIFF FLAG NO
[2025-03-15 08:25] LABS: Hematocrit 33.1 % (37.0-47.0); Hemoglobin 10.3 g/dl (12.0-16.0); Imm Gran Abs Auto 0.02 X10*3/uL (0.00-0.03); Imm Gran Pct Auto 0.4 % (0.0-0.4); Lymphocytes Absolute Auto 1.3 X10*3/uL (1.2-4.9); Mean Corpuscular HGB Conc 31.1 g/dl (31.0-35.0); Mean Corpuscular Hemoglobin 30.3 pg (27.0-33.0); Mean Corpuscular Volume 97.4 fL (80.0-98.0); NRBC Abs Auto 0.000 X10*3/uL (0.0-0.012); NRBC Pct Auto 0.0 /100WBC (0.0-0.2); Platelet Count 140 X10*3/uL (160-400); Red Blood Count 3.40 X10*6/uL (4.20-5.50); White Blood Count 4.6 X10*3/uL (4.8-10.8)
[2025-03-15 08:50] LABS: Alanine Aminotransferase 20 U/L (0-31); Albumin Level 4.3 g/dL (3.5-5.0); Alkaline Phosphatase 58 U/L (39-117); Anion Gap 11 (12-20); Aspartate Amino Transferase 28 U/L (5-31); Blood Urea Nitrogen 16 mg/dL (9-16); Calcium 9.5 mg/dL (8.4-10.2); Carbon Dioxide 27 mmol/L (22-29); Chloride 109 mmol/L (96-108); Cholesterol 205 mg/dL (<200); Estimated Glomerular Filt Rate > 60; HDL Cholesterol 32 mg/dL (>40); Iron 74 mcg/dL (30-160); Percent Iron Saturation 29 % (15-50); Potassium 3.9 mmol/L (3.3-5.1); Sodium 143 mmol/L (135-145); Total Iron Binding Capacity 251 mcg/dL (228-428); Total Protein 6.7 g/dL (6.5-8.0); Triglycerides 270 mg/dL (<150); Unsaturated Iron Binding 177 ug/dL
[2025-03-15 09:13] LABS: Folate 12.7 ng/mL (> or = 4.0); Vitamin B12 1202 pg/mL (200-900)
[2025-03-19 18:29] LABS: Collagen Type I C-Telopeptide 310 pg/mL (see note)
[2025-03-20 13:38] LABS: Vitamin D 25-OH, D2 <4 ng/mL; Vitamin D 25-OH, D3 32 ng/mL; Vitamin D 25-OH, Total 32 ng/mL (30-100)
== END 2025-03-15 07:27 | disposition home or self-care (01) ==
LOC: HO.LAB 07:26
PROVIDERS: Absent Provider Internal Medicine; PCP Internal Medicine; Visit Provider Student in an Organized Health Care Education/Training Program
DX: Z00.00 Encounter for general adult medical examination without abnormal findings (principal); M81.0 Age-related osteoporosis without current pathological fracture; D50.9 Iron deficiency anemia, unspecified; E78.00 Pure hypercholesterolemia, unspecified; E78.5 Hyperlipidemia, unspecified; E53.8 Deficiency of other specified B group vitamins; Z79.899 Other long term (current) drug therapy; R76.89 Other specified abnormal immunological findings in serum
CPT/HCPCS: 36415; 80053; 80061; 82306; 82523; 82607; 82746; 83540; 85025

== ENCOUNTER 2025-03-18 07:31 | Outpatient (AMB) | payer OTHER, SELFPAY ==
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
--- OUTSIDE RECORDS SUMMARY | 2025-03-18 07:34 | XMS_ITS | Clinical Summary ---
Author Organization [employer] Address [address] [facility] [address] [place] [address] Care Team Providers Care Gas Operator Name Role Phone Unavailable Primary Care [...] patient's age to complete this topic Insurance [facility] SKILLED NURSING OPTIONS (HMO D-SNP)
[2025-03-18 07:39] VITALS: BP 140/60; PULSE 75; O2SAT 98; BMI 32.3
== END 2025-03-18 08:10 | disposition home or self-care (01) ==
LOC: HO.RHES 07:32
PROVIDERS: PCP Internal Medicine; Visit Provider Student in an Organized Health Care Education/Training Program
DX: M81.0 Age-related osteoporosis without current pathological fracture (principal); M25.561 Pain in right knee; G89.29 Other chronic pain; Z51.81 Encounter for therapeutic drug level monitoring; Z79.899 Other long term (current) drug therapy
CPT/HCPCS: 99215; G2211

== ENCOUNTER → 2025-03-18 07:31 | Outpatient (BNVA) | payer OTHER, SELFPAY | PROVIDERS: PCP Internal Medicine; Visit Provider Student in an Organized Health Care Education/Training Program | DX: M81.0 Age-related osteoporosis without current pathological fracture (principal); M25.561 Pain in right knee; G89.29 Other chronic pain; Z51.81 Encounter for therapeutic drug level monitoring; Z79.899 Other long term (current) drug therapy | CPT/HCPCS: 99212 ==

== ENCOUNTER 2025-04-07 07:44 | Outpatient (AMB) | payer OTHER, SELFPAY ==
--- NOTE | 2025-04-07 07:58 | AM.OFFVISNUR ---
Intake Visit Reasons: Prolia Allergies Seasonal Allergies Allergy (Mild, Verified 03/18/25 07:38) swallowen ENVIRONMENTAL Allergy (Mild, Uncoded 01/27/25 09:34) SWOLLEN EYES FROM POLLEN Office Meds Prolia 60 mg/mL subcutaneous syringe Performing Provider: Shelly Gomez MD Performing Location: [facility] Rheumatology-[facility] Administered by: Dayna Main RN on 04/07/25 08:06 Dose Route Admin Location Dispensed Lot Number Expiration Date NDC Catapult [employer] Arresting Gear Officer 60 mg subcut left upper arm 1 mL [id number] 05/19/27 76844-607-78 [employer] Total Dispensed Waste 1 mL 0 % Comments: Lilian arrived with her [id number] who also interpreted for her first Prolia injection. Prolia was administered to her left upper arm. Site was clear, dry, and intact. No adverse reactions noted. Patient stayed 15 minutes for monitoring. Patient made aware to contact us with any adverse reactions or side effects. Assessment & Plan Assessment & Plan Orders: Orders AMB Denosumab Injection Practice Supplied Today M81.0 - Age-related osteoporosis without current pathological fracture Coding
--- OUTSIDE RECORDS SUMMARY | 2025-04-07 15:16 | XMS_ITS | Clinical Summary ---
Author Organization [employer] Address [address] [facility] [address] [place] [address] Care Team Providers Care Linux Systems Administrator Name Role Phone Unavailable Primary Care Provider [...] patient's age to complete this topic Insurance [facility] LONG-TERM OPTIONS (HMO D-SNP)
== END 2025-04-07 08:09 | disposition home or self-care (01) ==
LOC: HO.RHES 07:45
PROVIDERS: PCP Internal Medicine; Visit Provider Student in an Organized Health Care Education/Training Program
DX: M81.0 Age-related osteoporosis without current pathological fracture (principal)

== ENCOUNTER → 2025-04-07 07:44 | Outpatient (BNVA) | payer OTHER, SELFPAY | PROVIDERS: PCP Internal Medicine; Visit Provider Student in an Organized Health Care Education/Training Program | DX: M81.0 Age-related osteoporosis without current pathological fracture (principal); Z79.620 Long term (current) use of immunosuppressive biologic | CPT/HCPCS: 96372; J0897 ==

== ENCOUNTER 2025-05-18 14:36 | Outpatient (AMB) | payer OTHER, SELFPAY ==
--- NOTE | 2025-05-18 15:06 | MHC.OFFVIS ---
Vital Signs 05/18/25 15:11 Height 4 ft 6 in Weight 136 lb 6 oz BMI 32.9 BP 163/74 H Blood Pressure Location Rt brachial Position Sitting Pulse 71 Intake Visit Reasons: Yearly breast exam Intake Note: Patient is seen in office for yealry breast exam. Pt c/o: reports no breast complaints. mm:07/21/24 Coding Compliance Manager Required: Yes Coding Compliance Manager Services: Coding Compliance Manager Offered & Declined Accompanied by: daughter in-law Allergies Seasonal Allergies Allergy (Mild, Verified 05/18/25 15:11) swallowen ENVIRONMENTAL Allergy (Mild, Uncoded 05/18/25 15:11) SWOLLEN EYES FROM POLLEN Medication List - Last Reconciled 05/18/25 by Ramin Hines MD acetaminophen ER (Mapap Arthritis Pain) 1,300 mg (2 x 650 mg) PO Q8H PRN 30 days atorvastatin 20 mg PO BEDTIME 90 days calcium citrate 200 mg PO DAILY 30 days cholecalciferol (vitamin D3) 25 mcg PO DAILY 90 days cyanocobalamin (vitamin B-12) 1,000 mcg sublingual DAILY 90 days lidocaine 5% 1 patch topical DAILY lisinopril 10 mg PO DAILY 90 days sertraline 50 mg PO DAILY 90 days HPI Comments Details: 84-year-old female patient, former patient of Dr. Fernandez returning for follow-up breast examination. She was found to have a palpable mass in February 2015 in the left breast at the lower outer quadrant. 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 A PET scan revealed evidence of 3 positive axillary lymph nodes. Ultrasound-guided biopsy of the lymph nodes revealed metastatic disease to lymph nodes. She subsequently underwent neoadjuvant chemotherapy under direction of Dr. Parra. She received Taxotere, carboplatin, pertuzumab, and Herceptin. She had a complete clinical response and MRI revealed a complete response. She underwent a left breast lumpectomy with needle localization and left sentinel axillary node biopsy on 08/09/2015. She had a complete pathologic response as well. She subsequently underwent radiation therapy which was completed on 11/28/2015. She underwent Herceptin for 1 year. The patient feels well and denies any new breast symptoms. Her last mammogram dated 07/21/2024 revealed no mammographic evidence of malignancy (BI-RADS 2). Follow-up mammogram is scheduled for 07/27/2025. [facility] Medical History History of left breast cancer Depression Hypovitaminosis D B12 deficiency Essential hypertension Surgical History History of eye surgery History of lumpectomy of left breast History of cholecystectomy History of hysterectomy Family History Father No problems noted. Mother No problems noted. Brother Lung cancer Social History Household Members Other:: Son Housing: Apartment Alcohol intake: never Patient Tobacco Use Status: Never used Tobacco e-Cigarette/Vaping Use: Never Used Second Hand Smoke Exposure: No service: No Current occupational status: unemployed Cognitive needs: Yes (cane, walker ) Hearing needs: No Vision needs: Yes Review of Systems Const All systems reviewed & are unremarkable except as noted in HPI and below Physical Exam Const General: no acute distress Nutritional Appearance: well nourished Orientation/consciousness: patient oriented x3 HEENT Head: Yes normocephalic and Yes atraumatic Chest Other: Well-healed incision in the left breast with some residual radiation change especially in the upper outer quadrant of the left breast. No discrete mass, skin change, nipple discharge for axillary lymphadenopathy is identified. Right breast: No skin change, nipple discharge, nipple retraction, palpable mass, or enlarged lymph node is appreciated. Chest/axillae images:  1. Residual RT changes noted left breast Resp Effort & Inspection: normal respiratory effort Skin General skin exam: no rashes or lesions noted Neuro Other: Mobility Assessment: 1. 3 meter assessment time (seconds) 6 sec 2. Gait observations: Normal balance and gait General: patient oriented x3 Extrem General: Yes no clubbing, cyanosis or edema Assessment & Plan Assessment & Plan (1) History of left breast cancer: Code(s): Z85.3 - Personal history of malignant neoplasm of breast Category: Medical Plan: 84-year-old female with a prior history of a locally advanced breast cancer, status post neoadjuvant treatment followed by lumpectomy and sentinel node biopsy, followed by radiation therapy and Herceptin for 1 year. Patient continues to do well and denies any ongoing breast symptoms. Her most recent mammogram of 07/21/2024 reveals no mammographic evidence of malignancy (BI-RADS 2). Examination today reveals no suspicious findings in either breast and no evidence of recurrence disease. She should continue to follow-up with Dr. Parra. She is scheduled for a follow-up mammogram on 07/27/2025 and should follow up in the office in 1 year, sooner PRN. Coding Level of Care Code Est Pt Level 3 (47876) Add On Problem Visit Only Diagnoses History of left breast cancer Z85.3
[2025-05-18 15:11] VITALS: BP 163/74; PULSE 71; BMI 32.9
--- OUTSIDE RECORDS SUMMARY | 2025-05-18 18:15 | XMS_ITS | Clinical Summary ---
Author Organization [employer] Address [address] [facility] [address] [place] [address] Care Team Providers Care Telegraph Messenger Name Role Phone Unavailable Primary Care Provider [...] age to complete this topic Insurance [facility] OPTIONS (HMO D-SNP)
== END 2025-05-18 15:20 | disposition home or self-care (01) ==
LOC: HO.HGS 14:36
PROVIDERS: PCP Internal Medicine; Visit Provider Surgery
DX: Z85.3 Personal history of malignant neoplasm of breast (principal)
CPT/HCPCS: 99213; G2211

== ENCOUNTER → 2025-05-18 14:36 | Outpatient (BNVA) | payer OTHER, SELFPAY | PROVIDERS: PCP Internal Medicine; Visit Provider Surgery | DX: Z08 Encounter for follow-up examination after completed treatment for malignant neoplasm (principal); Z85.3 Personal history of malignant neoplasm of breast; Z90.12 Acquired absence of left breast and nipple | CPT/HCPCS: 99212 ==